=== PATIENT | female | born 1955 | race Caucasian/White ===

== ENCOUNTER 2017-02-20 11:26 | Emergency (ER) | payer MEDICAID ==
[~2017-02-20] VITALS: Ht 160 cm; Wt 77.0 kg
[~2017-02-20 11:26] MED LIST: ALLO100T PO; DEXT15DR5 EACHEYE; DILT240C52 PO; FURO40TA5 PO; GABA-531 PO; HYDR-4135 PO; INSU100C6 SQ; LEVO25TA7 PO; LEVPEN SQ; LOSA100T14 PO; METF500T4 PO; METO100T5 PO; REV20 PO; XALAO EACHEYE
[2017-02-20] MEDS ORDERED: ONDANSETRON HCL 4MG/2ML VIAL IV STA (12:55)
[2017-02-20] MEDS ORDERED: SODIUM CHLORIDE 0.9% 1,000 ML IV ONE (12:55)
[2017-02-20 14:44] LABS: BASOPHILS % 1.1 % (0.0-2.0); EOSINOPHILS % 0.4 % (0.0-5.0); HEMATOCRIT. 32.8 % (36.0-48.0); HEMOGLOBIN. 11.3 g/dL (12.0-16.0); LYMPHOCYTES % 16.2 % (20.0-50.0); MEAN CORPUSCULAR HEMOGLOBIN 27.9 pg (28.0-32.0); MEAN CORPUSCULAR HGB CONC 34.4 g/dL (31.0-37.0); MEAN CORPUSCULAR VOLUME 81.3 fL (81.0-99.0); MONOCYTES % 7.5 % (2.0-8.0); NEUTROPHILS % 74.8 % (40.0-76.0); PLATELET 161 x1000/uL (130-400); RED BLOOD CELL COUNT 4.04 mill/uL (4.2-5.4); RED CELL DISTRIBUTION WIDTH 15.9 % (11.6-14.6); WHITE BLOOD COUNT 6.1 x1000/uL (4.5-11.0)
[2017-02-20 14:49] LABS: INR 2.4; PROTHROMBIN TIME 24.5 sec
[2017-02-20 14:56] LABS: ALANINE AMINOTRANSFERASE 18 IU/L (13-61); ANION GAP 13; CALCIUM 8.9 mg/dL (8.5-10.1); CARBON DIOXIDE 30 mEq/L (21-32); CHLORIDE 103 mEq/L (98-107); INDEX HEMOLYSI 1 (1-3); INDEX ICTERIC 1 (1-4); INDEX LIPEMIC 1 (1-3); LIPASE 247 IU/L (73-393); UREA NITROGEN BLOOD 32 mg/dL (7-21); eGFR > 60 mL/min (>60)
[2017-02-20 15:30] LABS: NT PRO B-TYPE NATRIURETIC PEP 4289 pg/mL (5-125); TROPONIN I < 0.02 ng/mL (0.00-0.04)
[2017-02-20] MEDS ORDERED: FAMOTIDINE 20MG/2ML VIAL IV ONE (16:15)
[2017-02-20 16:42] LABS: CLARITY URINE CLEAR (CLEAR); COLOR URINE YELLOW (YELLOW); GLUCOSE URINE NEGATIVE (NEGATIVE); KETONES URINE NEGATIVE (NEGATIVE); LEUKOCYTE ESTERASE URINE NEGATIVE (NEGATIVE); NITRITE URINE NEGATIVE (NEGATIVE); OCCULT BLOOD URINE NEGATIVE (NEGATIVE); PH URINE 7.5 (4.5-8.0); PROTEIN URINE NEGATIVE (NEGATIVE); UROBILINOGEN URINE 0.2 E.U./dL (0.2-1.0)
[2017-02-20 17:36] VITALS: BP 134/64
== END 2017-02-20 17:38 | disposition home or self-care (01) ==
LOC: ER 11:26
DX: R10.84 Generalized abdominal pain (principal); E11.9 Type 2 diabetes mellitus without complications; I11.9 Hypertensive heart disease without heart failure; I51.9 Heart disease, unspecified; Z95.1 Presence of aortocoronary bypass graft; Z95.0 Presence of cardiac pacemaker; Z79.4 Long term (current) use of insulin; Z79.899 Other long term (current) drug therapy
CPT/HCPCS: 36415; 71010; 74176; 80053; 81003; 82962; 83690; 83880; 84484; 85025; 85610; 96361; 96374; 96375; 99285; J2405; J3490; J7030; Z7610

== ENCOUNTER 2017-10-26 12:55 | Emergency (ER) | payer MEDICAID ==
[~2017-10-26] VITALS: Ht 160 cm; Wt 70.0 kg
[~2017-10-26 12:55] MED LIST changes: +MECL-109 PO; +METO100T16 PO; -METO100T5 PO; +WARF5TAB73 PO
[2017-10-26 15:53] LABS: BASOPHILS % 2.9 % (0.0-2.0); EOSINOPHILS % 1.2 % (0.0-5.0); HEMOGLOBIN. 8.6 g/dL (12.0-16.0); LYMPHOCYTES % 8.1 % (20.0-50.0); MEAN CORPUSCULAR HEMOGLOBIN 25.1 pg (28.0-32.0); MEAN CORPUSCULAR VOLUME 79.1 fL (81.0-99.0); MEAN PLATELET VOLUME 8.3 fl (7.4-10.4); MONOCYTES % 6.3 % (2.0-8.0); NEUTROPHILS % 81.5 % (40.0-76.0); PLATELET 247 x1000/uL (130-400); RED BLOOD CELL COUNT 3.41 mill/uL (4.2-5.4); RED CELL DISTRIBUTION WIDTH 19.9 % (11.6-14.6)
[2017-10-26 15:56] LABS: CHLORIDE 101 mEq/L (98-107)
[2017-10-26 16:07] LABS: CARBON DIOXIDE 30 mEq/L (21-32)
[2017-10-26 16:15] LABS: INR 2.9; PARTIAL THROMBOPLASTIN TIME 41.7 sec (23.4-31.0); PROTHROMBIN TIME 30.3 sec (9.4-11.6)
[2017-10-26 16:37] LABS: FOLIC ACID (FOLATE) SERUM 15.2 ng/mL (>5.38)
[2017-10-26 17:18] VITALS: BP 152/69
== END 2017-10-26 17:38 | disposition home or self-care (01) ==
LOC: ER 13:42
DX: D50.9 Iron deficiency anemia, unspecified (principal); N28.9 Disorder of kidney and ureter, unspecified; I10 Essential (primary) hypertension; I25.10 Atherosclerotic heart disease of native coronary artery without angina pectoris; E11.9 Type 2 diabetes mellitus without complications; Z79.4 Long term (current) use of insulin; Z79.01 Long term (current) use of anticoagulants; Z79.899 Other long term (current) drug therapy; Z95.0 Presence of cardiac pacemaker
CPT/HCPCS: 36415; 80053; 82607; 82746; 85025; 85044; 85610; 85730; 86850; 86900; 86901; 99284; Z7610

== ENCOUNTER 2019-09-13 10:30 | Inpatient (IN) | payer MEDICARE, MEDICAID ==
[~2019-09-13] VITALS: Ht 152.4 cm; Wt 110.2 kg
[~2019-09-13 10:30] MED LIST changes: -DEXT15DR5 EACHEYE; -DILT240C52 PO; +DILT240C91 PO; +FERR325T6 PO; +FURO40SO PO; -FURO40TA5 PO; -HYDR-4135 PO; +HYDR100T26 PO; -INSU100C6 SQ; -LEVO25TA7 PO; +LEVO300T2 PO; +LEVO500T2 PO; -LEVPEN SQ; -LOSA100T14 PO; +LOSA100T32 PO; +METF-416 PO; -METF500T4 PO; +METO-411 PO; -METO100T16 PO; -REV20 PO; +VIAG100 PO; +WARF-53 PO; -WARF5TAB73 PO; -XALAO EACHEYE
[2019-09-13] MEDS ORDERED: MORPHINE SULFATE 4 MG/ML CPJ (NOT FOR IM USE) IV STA (11:30)
[2019-09-13] MEDS ORDERED: ONDANSETRON HCL 4MG/2ML INJ IV STA (11:30)
[2019-09-13] MEDS ORDERED: SODIUM CHLORIDE 0.9% 1,000 ML IV ONE (11:30)
[2019-09-13] MEDS ORDERED: LEVOFLOXACIN 500MG PREMIX 100 ML IV ONE (11:45)
[2019-09-13 12:16] LABS: BASOPHILS % 0.8 % (0.0-2.0); EOSINOPHILS % 1.2 % (0.0-5.0); HEMATOCRIT. 35.1 % (36.0-48.0); HEMOGLOBIN. 11.8 g/dL (12.0-16.0); LYMPHOCYTES % 19.2 % (20.0-50.0); MEAN CORPUSCULAR VOLUME 86.4 fL (81.0-99.0); MEAN PLATELET VOLUME 11.6 fl (7.4-10.4); MONOCYTES % 6.1 % (2.0-8.0); NEUTROPHILS % 72.7 % (40.0-76.0); PLATELET 136 x1000/uL (130-400); RED BLOOD CELL COUNT 4.06 mill/uL (4.2-5.4); RED CELL DISTRIBUTION WIDTH 17.1 % (11.6-14.6)
[2019-09-13 12:23] LABS: CHLORIDE 104 mEq/L (98-107)
[2019-09-13 12:27] LABS: PARTIAL THROMBOPLASTIN TIME 41.5 sec (23.4-31.0); PROTHROMBIN TIME 29.4 sec (9.6-11.0)
[2019-09-13] MEDS ORDERED: POTASSIUM CHLORIDE 20MEQ TABLET SR PO ONE (14:30)
[2019-09-13] MEDS ORDERED: CLONIDINE 0.1MG TABLET PO PRN (15:00)
[2019-09-13] MEDS ORDERED: ONDANSETRON HCL 4MG/2ML INJ IV PRN (15:00)
[2019-09-13] MEDS ORDERED: DOCUSATE SODIUM 100MG CAPSULE PO PRN (15:00)
[2019-09-13] MEDS ORDERED: ACETAMINOPHEN 325MG TABLET PO PRN (15:00)
[2019-09-13] MEDS ORDERED: HYDROCODONE/ACETAMINOPHEN 5/325MG TABLET PO PRN (15:00)
[2019-09-13] MEDS ORDERED: IPRATROPIUM/ALBUTEROL 0.5-3(2.5)MG/3ML NEB NEB PRN (15:00)
[2019-09-13] MEDS ORDERED: MAGNESIUM/ALUMINUM HYDROXIDE/SIMETHICONE 30ML UDC PO PRN (15:00)
[2019-09-13] MEDS ORDERED: TRAMADOL 50MG TABLET PO ONE (15:15)
[2019-09-13] MEDS ORDERED: MECLIZINE 12.5MG TABLET PO PRN (15:30)
[2019-09-13] MEDS: TRAMADOL 50MG TABLET PO NR ×2 (16:39→18:33)
[2019-09-13] MEDS ORDERED: MECLIZINE 25MG TABLET PO PRN (17:15)
[2019-09-13 17:49] VITALS: BP 114/57
[2019-09-13 18:00] VITALS: BP 114/53
[2019-09-13] MEDS: FUROSEMIDE 40MG/4ML VIAL IV SCH (18:32)
[2019-09-13] MEDS: DILTIAZEM HCL 60MG TABLET PO SCH (18:33)
[2019-09-13 20:00] VITALS: BP 112/50
[2019-09-13] MEDS: LOSARTAN POTASSIUM 50 MG TABLET PO SCH (21:00)
[2019-09-13] MEDS: HYDRALAZINE HCL 50MG TABLET PO SCH (22:00)
[2019-09-14] VITALS: BP 96/45
[2019-09-14 01:07] LABS: CREATINE KINASE 63 IU/L (26-192)
[2019-09-14 01:08] LABS: CREATINE KINASE MB FRACTION < 1.0 ng/mL (0.5-3.6)
[2019-09-14 04:00] VITALS: BP 114/51
[2019-09-14] MEDS: HYDRALAZINE HCL 50MG TABLET PO SCH ×2 (06:00→14:44)
[2019-09-14] MEDS: DILTIAZEM HCL 60MG TABLET PO SCH ×3 (06:00→12:00)
[2019-09-14 06:33] LABS: PROTHROMBIN TIME 29.5 sec (9.6-11.0)
[2019-09-14 06:43] LABS: CHLORIDE 108 mEq/L (98-107)
[2019-09-14 06:54] LABS: CREATINE KINASE 57 IU/L (26-192); LDL CHOLESTEROL 43 mg/dL (5-100)
[2019-09-14 06:56] LABS: CREATINE KINASE MB FRACTION < 1.0 ng/mL (0.5-3.6); HDL CHOLESTEROL 33 mg/dL (40-59)
[2019-09-14 06:57] LABS: BASOPHILS % 0.8 % (0.0-2.0); EOSINOPHILS % 1.8 % (0.0-5.0); HEMATOCRIT. 29.4 % (36.0-48.0); HEMOGLOBIN. 9.7 g/dL (12.0-16.0); LYMPHOCYTES % 24.3 % (20.0-50.0); MEAN CORPUSCULAR HEMOGLOBIN 28.5 pg (28.0-32.0); MEAN CORPUSCULAR VOLUME 86.2 fL (81.0-99.0); MEAN PLATELET VOLUME 10.6 fl (7.4-10.4); MONOCYTES % 7.9 % (2.0-8.0); NEUTROPHILS % 65.2 % (40.0-76.0); PLATELET 105 x1000/uL (130-400); RED BLOOD CELL COUNT 3.41 mill/uL (4.2-5.4); RED CELL DISTRIBUTION WIDTH 16.7 % (11.6-14.6)
[2019-09-14 08:00] VITALS: BP 107/53
[2019-09-14] MEDS: LOSARTAN POTASSIUM 50 MG TABLET PO SCH (08:27)
[2019-09-14] MEDS: FUROSEMIDE 40MG/4ML VIAL IV SCH (08:37)
[2019-09-14] MEDS ORDERED: POTASSIUM CHLORIDE 20MEQ TABLET SR PO SCH (09:00)
[2019-09-14 12:00] VITALS: BP 131/62
[2019-09-14 15:19] VITALS: BP 131/62
== END 2019-09-14 16:00 | disposition home or self-care (01) | DRG 913 ==
LOC: ER 10:30 → EDBEDREQ 11:41 → EDBEDREQTM 14:48 → ENRESERV 15:26 → 5WST 17:02
PROVIDERS: ADMIT Internal Medicine; ATTEND Internal Medicine
DX: S49.92XA Unspecified injury of left shoulder and upper arm, initial encounter (principal); I50.23 Acute on chronic systolic (congestive) heart failure; I13.0 Hypertensive heart and chronic kidney disease with heart failure and stage 1 through stage 4 chronic kidney disease, or unspecified chronic kidney disease; I48.20 Chronic atrial fibrillation, unspecified; I42.0 Dilated cardiomyopathy; E03.9 Hypothyroidism, unspecified; E11.22 Type 2 diabetes mellitus with diabetic chronic kidney disease; E78.5 Hyperlipidemia, unspecified; E87.6 Hypokalemia; I08.1 Rheumatic disorders of both mitral and tricuspid valves; I50.9 Heart failure, unspecified; M19.90 Unspecified osteoarthritis, unspecified site; N18.9 Chronic kidney disease, unspecified; I49.5 Sick sinus syndrome; I27.20 Pulmonary hypertension, unspecified; R79.1 Abnormal coagulation profile; W18.39XA Other fall on same level, initial encounter; Z79.01 Long term (current) use of anticoagulants; Z79.4 Long term (current) use of insulin; Z95.0 Presence of cardiac pacemaker; Z95.1 Presence of aortocoronary bypass graft; Y93.89 Activity, other specified; Y92.89 Other specified places as the place of occurrence of the external cause; Y99.8 Other external cause status; Z79.899 Other long term (current) drug therapy
CPT/HCPCS: 36415; 71045; 73030; 80048; 80061; 82550; 82553; 82962; 83735; 83880; 84443; 84484; 93005; 93880; 93970; 96361; 96374; 96375; 99291; J1940; J2270; J2405; J7030

== ENCOUNTER 2021-12-19 14:44 | Inpatient (IN) | payer MEDICARE, MEDICAID ==
[~2021-12-19] VITALS: Ht 157.5 cm; Wt 65.8 kg
[~2021-12-19 14:44] MED LIST changes: -GABA-531 PO; +GABA-532 PO; -MECL-109 PO; +MECL-159 PO
[2021-12-19 17:01] LABS: BASOPHILS % 0.6 % (0.0-2.0); EOSINOPHILS % 0.1 % (0.0-5.0); HEMOGLOBIN. 9.8 g/dL (12.0-16.0); LYMPHOCYTES % 16.3 % (20.0-50.0); MEAN CORPUSCULAR HEMOGLOBIN 28.2 pg (28.0-32.0); MEAN CORPUSCULAR VOLUME 86.9 fL (81.0-99.0); MONOCYTES % 5.3 % (2.0-8.0); NEUTROPHILS % 77.7 % (40.0-76.0); PLATELET 179 x1000/uL (130-400); RED BLOOD CELL COUNT 3.46 mill/uL (4.2-5.4); RED CELL DISTRIBUTION WIDTH 19.2 % (11.6-14.6)
[2021-12-19 17:05] LABS: CLARITY URINE CLEAR (CLEAR); COLOR URINE YELLOW (YELLOW); KETONES URINE NEGATIVE (NEGATIVE); LEUKOCYTE ESTERASE URINE 2+ (NEGATIVE); NITRITE URINE NEGATIVE (NEGATIVE); OCCULT BLOOD URINE NEGATIVE (NEGATIVE); PROTEIN URINE NEGATIVE (NEGATIVE); SPECIFIC GRAVITY URINE 1.009 (1.005-1.030); UROBILINOGEN URINE 0.2 E.U./dL (0.2-1.0)
[2021-12-19 17:07] LABS: CHLORIDE 98 mEq/L (98-107)
[2021-12-19 17:10] LABS: PROTHROMBIN TIME 29.3 sec (9.6-11.0)
[2021-12-19] MEDS ORDERED: CEFTRIAXONE 1 G PREMIX 50 ML IV ONE (18:00)
[2021-12-19 20:00] VITALS: BP 126/63
[2021-12-19] MEDS ORDERED: SODIUM CHLORIDE 0.9% 1,000 ML IV ONE (20:30)
[2021-12-19] MEDS ORDERED: ONDANSETRON HCL 4MG/2ML INJ IV PRN (23:30)
[2021-12-19] MEDS ORDERED: ACETAMINOPHEN 325MG TABLET PO PRN (23:30)
[2021-12-19] MEDS ORDERED: ENOXAPARIN 40MG/0.4ML SYR SUBCUT SCH (23:30)
[2021-12-20] MEDS: DILTIAZEM HCL 60MG TABLET PO SCH ×2 (00:49→06:00)
[2021-12-20] MEDS: SODIUM CHLORIDE 0.9% 1,000 ML IV SCH ×3 (00:50→16:10)
[2021-12-20] MEDS: CEFEPIME 500 MG in DEXTROSE 5% WATER 50 ML IV SCH (03:20)
[2021-12-20 04:00] VITALS: BP 104/49
[2021-12-20] MEDS: HYDRALAZINE HCL 50MG TABLET PO SCH ×3 (06:00→21:13)
[2021-12-20] MEDS: LEVOTHYROXINE SODIUM 25MCG TABLET PO SCH (06:18)
[2021-12-20] MEDS: SILDENAFIL CITRATE 20MG TABLET PO SCH ×3 (06:20→21:28)
[2021-12-20 06:47] LABS: BASOPHILS % 0.5 % (0.0-2.0); EOSINOPHILS % 0.1 % (0.0-5.0); HEMATOCRIT. 28.2 % (36.0-48.0); HEMOGLOBIN. 9.6 g/dL (12.0-16.0); LYMPHOCYTES % 17.1 % (20.0-50.0); MEAN CORPUSCULAR HEMOGLOBIN 29.2 pg (28.0-32.0); MEAN CORPUSCULAR VOLUME 85.7 fL (81.0-99.0); MEAN PLATELET VOLUME 10.3 fl (7.4-10.4); MONOCYTES % 7.6 % (2.0-8.0); NEUTROPHILS % 74.7 % (40.0-76.0); PLATELET 162 x1000/uL (130-400); RED CELL DISTRIBUTION WIDTH 19.2 % (11.6-14.6)
[2021-12-20 06:57] LABS: CHLORIDE 102 mEq/L (98-107)
[2021-12-20 07:17] LABS: CREATINE KINASE 77 IU/L (26-192)
[2021-12-20 07:21] LABS: CREATINE KINASE MB FRACTION 2.3 ng/mL (0.5-3.6)
[2021-12-20 08:00] VITALS: BP 127/64
[2021-12-20] MEDS ORDERED: CEFEPIME HCL 1000MG/VIAL INJ IM SCH (09:00)
[2021-12-20] MEDS ORDERED: METOPROLOL TARTRATE 50MG TABLET PO SCH (09:00)
[2021-12-20] MEDS: ALLOPURINOL 100 MG TABLET PO SCH (09:52)
[2021-12-20 12:00] VITALS: BP 125/74
[2021-12-20] MEDS ORDERED: DEXTROSE 50% WATER 50ML SYRINGE IV PRN (12:45)
[2021-12-20 16:00] VITALS: BP 100/37
[2021-12-20] MEDS: INSULIN LISPRO 100 UNITS/ML SUBCUT SCH ×2 (17:11→21:28)
[2021-12-20] MEDS: DILTIAZEM HCL 30MG TABLET PO SCH (17:12)
[2021-12-20] MEDS: BLOOD SUGAR DIAGNOSTIC STRIP TEST SCH ×2 (17:13→21:13)
[2021-12-20 18:11] LABS: CREATINE KINASE 103 IU/L (26-192)
[2021-12-20 18:12] LABS: CREATINE KINASE MB FRACTION 2.1 ng/mL (0.5-3.6)
[2021-12-20 20:00] VITALS: BP 101/66
[2021-12-20] MEDS: METOPROLOL TARTRATE 50MG TABLET PO SCH (21:00)
[2021-12-21] VITALS: BP 110/57
[2021-12-21] MEDS: DILTIAZEM HCL 30MG TABLET PO SCH ×4 (00:54→17:57)
[2021-12-21] MEDS: CEFEPIME 500 MG in DEXTROSE 5% WATER 50 ML IV SCH (00:54)
[2021-12-21] MEDS: SODIUM CHLORIDE 0.9% 1,000 ML IV SCH ×3 (00:55→17:56)
[2021-12-21 04:00] VITALS: BP 111/52
[2021-12-21] MEDS: HYDRALAZINE HCL 50MG TABLET PO SCH ×3 (06:00→21:08)
[2021-12-21] MEDS: BLOOD SUGAR DIAGNOSTIC STRIP TEST SCH ×4 (06:21→21:08)
[2021-12-21] MEDS: LEVOTHYROXINE SODIUM 25MCG TABLET PO SCH (06:28)
[2021-12-21] MEDS: SILDENAFIL CITRATE 20MG TABLET PO SCH ×3 (06:30→21:09)
[2021-12-21] MEDS: INSULIN LISPRO 100 UNITS/ML SUBCUT SCH ×4 (06:32→21:10)
[2021-12-21 07:56] LABS: BASOPHILS % 0.6 % (0.0-2.0); EOSINOPHILS % 0.5 % (0.0-5.0); HEMATOCRIT. 23.9 % (36.0-48.0); HEMOGLOBIN. 8.1 g/dL (12.0-16.0); LYMPHOCYTES % 19.2 % (20.0-50.0); MEAN CORPUSCULAR HEMOGLOBIN 29.8 pg (28.0-32.0); MEAN CORPUSCULAR VOLUME 87.8 fL (81.0-99.0); MEAN PLATELET VOLUME 10.5 fl (7.4-10.4); MONOCYTES % 8.5 % (2.0-8.0); NEUTROPHILS % 71.2 % (40.0-76.0); PLATELET 121 x1000/uL (130-400); RED BLOOD CELL COUNT 2.72 mill/uL (4.2-5.4); RED CELL DISTRIBUTION WIDTH 18.9 % (11.6-14.6)
[2021-12-21 08:00] VITALS: BP 100/44
[2021-12-21 08:01] LABS: INR 2.7; PROTHROMBIN TIME 27.2 sec (9.6-11.0)
[2021-12-21 08:10] LABS: PHOSPHORUS 3.6 mg/dL (2.5-4.9)
[2021-12-21 08:13] LABS: T4 FREE 1.03 ng/dL (0.76-1.46)
[2021-12-21] MEDS: ALLOPURINOL 100 MG TABLET PO SCH (08:14)
[2021-12-21] MEDS: METOPROLOL TARTRATE 50MG TABLET PO SCH ×2 (08:14→21:09)
[2021-12-21 11:33] VITALS: BP 127/59
[2021-12-21 15:33] VITALS: BP 119/50
[2021-12-21 20:00] VITALS: BP 131/62
[2021-12-22] VITALS: BP 126/72
[2021-12-22] MEDS: CEFEPIME 500 MG in DEXTROSE 5% WATER 50 ML IV SCH (00:18)
[2021-12-22] MEDS: DILTIAZEM HCL 30MG TABLET PO SCH ×4 (00:18→17:00)
[2021-12-22] MEDS: SODIUM CHLORIDE 0.9% 1,000 ML IV SCH ×3 (00:19→12:55)
[2021-12-22 04:00] VITALS: BP 120/69
[2021-12-22 06:02] LABS: INR 1.7; PROTHROMBIN TIME 17.9 sec (9.6-11.0)
[2021-12-22] MEDS: LEVOTHYROXINE SODIUM 25MCG TABLET PO SCH (06:06)
[2021-12-22] MEDS: HYDRALAZINE HCL 50MG TABLET PO SCH ×2 (06:07→14:55)
[2021-12-22] MEDS: BLOOD SUGAR DIAGNOSTIC STRIP TEST SCH ×4 (06:08→21:00)
[2021-12-22] MEDS: SILDENAFIL CITRATE 20MG TABLET PO SCH ×3 (06:08→22:01)
[2021-12-22] MEDS: INSULIN LISPRO 100 UNITS/ML SUBCUT SCH ×4 (06:09→22:06)
[2021-12-22 06:12] LABS: BASOPHILS % 0.6 % (0.0-2.0); EOSINOPHILS % 0.1 % (0.0-5.0); HEMATOCRIT. 24.9 % (36.0-48.0); HEMOGLOBIN. 8.1 g/dL (12.0-16.0); LYMPHOCYTES % 13.2 % (20.0-50.0); MEAN CORPUSCULAR HEMOGLOBIN 28.8 pg (28.0-32.0); MEAN PLATELET VOLUME 10.8 fl (7.4-10.4); MONOCYTES % 7.5 % (2.0-8.0); NEUTROPHILS % 78.6 % (40.0-76.0); PLATELET 134 x1000/uL (130-400); RED BLOOD CELL COUNT 2.82 mill/uL (4.2-5.4); RED CELL DISTRIBUTION WIDTH 19.3 % (11.6-14.6)
[2021-12-22 08:22] VITALS: BP 103/50
[2021-12-22] MEDS: METOPROLOL TARTRATE 50MG TABLET PO SCH ×2 (08:23→22:02)
[2021-12-22] MEDS: ALLOPURINOL 100 MG TABLET PO SCH (08:24)
[2021-12-22 13:01] VITALS: BP 130/75
[2021-12-22 16:00] VITALS: BP 141/58
[2021-12-22 20:00] VITALS: BP 147/52
[2021-12-23] VITALS: BP 115/57
[2021-12-23] MEDS: SODIUM CHLORIDE 0.9% 1,000 ML IV SCH ×3 (00:01→14:23)
[2021-12-23] MEDS: DILTIAZEM HCL 30MG TABLET PO SCH ×4 (00:10→17:05)
[2021-12-23] MEDS: CEFEPIME 500 MG in DEXTROSE 5% WATER 50 ML IV SCH (00:12)
[2021-12-23 04:00] VITALS: BP 99/47
[2021-12-23] MEDS: LEVOTHYROXINE SODIUM 25MCG TABLET PO SCH (06:33)
[2021-12-23] MEDS: SILDENAFIL CITRATE 20MG TABLET PO SCH ×2 (06:33→14:21)
[2021-12-23] MEDS: INSULIN LISPRO 100 UNITS/ML SUBCUT SCH ×3 (06:35→17:04)
[2021-12-23] MEDS: BLOOD SUGAR DIAGNOSTIC STRIP TEST SCH ×3 (06:35→17:04)
[2021-12-23 08:01] VITALS: BP 117/60
[2021-12-23] MEDS: ALLOPURINOL 100 MG TABLET PO SCH (08:19)
[2021-12-23] MEDS: METOPROLOL TARTRATE 50MG TABLET PO SCH (08:19)
[2021-12-23 10:39] LABS: INR 1.3; PROTHROMBIN TIME 13.8 sec (9.6-11.0)
[2021-12-23 11:38] VITALS: BP 130/73
[2021-12-23 15:58] VITALS: BP 107/71
[2021-12-23 17:33] VITALS: BP 130/70
[2021-12-23] MEDS ORDERED: WARFARIN SODIUM 5MG TABLET PO NR (18:00)
== END 2021-12-23 18:40 | disposition home or self-care (01) | DRG 683 ==
LOC: ER 14:44 → EDBEDREQ 15:40 → MICUSO 22:10 → EDBEDREQ 22:19 → EDBEDREQTM 22:19 → 8WST 23:38
PROVIDERS: ADMIT Internal Medicine; ATTEND Internal Medicine
DX: N17.0 Acute kidney failure with tubular necrosis (principal); N39.0 Urinary tract infection, site not specified; I13.0 Hypertensive heart and chronic kidney disease with heart failure and stage 1 through stage 4 chronic kidney disease, or unspecified chronic kidney disease; I48.20 Chronic atrial fibrillation, unspecified; I50.32 Chronic diastolic (congestive) heart failure; I42.0 Dilated cardiomyopathy; I31.3 Pericardial effusion (noninflammatory); B69.0 Cysticercosis of central nervous system; D64.9 Anemia, unspecified; E03.9 Hypothyroidism, unspecified; E11.22 Type 2 diabetes mellitus with diabetic chronic kidney disease; E11.40 Type 2 diabetes mellitus with diabetic neuropathy, unspecified; I27.20 Pulmonary hypertension, unspecified; N18.30 Chronic kidney disease, stage 3 unspecified; I48.0 Paroxysmal atrial fibrillation; I49.5 Sick sinus syndrome; K21.9 Gastro-esophageal reflux disease without esophagitis; M19.90 Unspecified osteoarthritis, unspecified site; Z20.822 Contact with and (suspected) exposure to COVID-19; J44.9 Chronic obstructive pulmonary disease, unspecified; I08.3 Combined rheumatic disorders of mitral, aortic and tricuspid valves; M06.9 Rheumatoid arthritis, unspecified; I25.10 Atherosclerotic heart disease of native coronary artery without angina pectoris; Z79.01 Long term (current) use of anticoagulants; Z79.899 Other long term (current) drug therapy; Z95.0 Presence of cardiac pacemaker; Z95.1 Presence of aortocoronary bypass graft
CPT/HCPCS: 36415; 71045; 74176; 80048; 80053; 81003; 82306; 82550; 82553; 82962; 83036; 83605; 83735; 83880; 83970; 84100; 84439; 84443; 84484; 84550; 85025; 87077; 87186; 87426; 93005; 93306; 99285; J0692; J0696; J1815; J7030; J7060

== ENCOUNTER 2022-05-13 08:59 | Emergency (ER) | payer MEDICARE, MEDICAID ==
[~2022-05-13] VITALS: Ht 144.8 cm; Wt 75.0 kg
[~2022-05-13 08:59] MED LIST changes: -FURO40SO PO; -HYDR100T26 PO; -LEVO500T2 PO; -LOSA100T32 PO; -METF-416 PO
[2022-05-13 09:06] VITALS: BP 126/72
[2022-05-13] MEDS ORDERED: ACETAMINOPHEN 325MG TABLET PO ONE (09:45)
[2022-05-13] MEDS ORDERED: ALBUTEROL 6.7GM HFA INHALER ORI NR (10:30)
[2022-05-13] MEDS ORDERED: ALBU4TAB6 MT (11:27)
[2022-05-13] MEDS ORDERED: DOXY-326 MT (11:27)
[2022-05-13] MEDS ORDERED: DOXYCYCLINE HYCLATE 100MG CAPSULE PO ONE (11:30)
== END 2022-05-13 11:56 | disposition home or self-care (01) ==
LOC: ER 08:59
DX: U07.1 COVID-19 (principal); B34.9 Viral infection, unspecified; E11.9 Type 2 diabetes mellitus without complications; I10 Essential (primary) hypertension; Z79.899 Other long term (current) drug therapy; Z13.9 Encounter for screening, unspecified
CPT/HCPCS: 71045; 87426; 99284; C9803

== ENCOUNTER 2022-06-01 14:46 | Inpatient (IN) | payer MEDICARE, MEDICAID ==
[~2022-06-01] VITALS: Ht 157.5 cm; Wt 65.8 kg
[~2022-06-01 14:46] MED LIST changes: +ALBU4TAB6 MT; +DOXY-326 MT
[2022-06-01 21:10] LABS: BASOPHILS % 1.1 % (0.0-2.0); EOSINOPHILS % 0.6 % (0.0-5.0); HEMATOCRIT. 28.8 % (36.0-48.0); LYMPHOCYTES % 19.9 % (20.0-50.0); MEAN CORPUSCULAR HEMOGLOBIN 27.4 pg (28.0-32.0); MEAN CORPUSCULAR VOLUME 87.4 fL (81.0-99.0); MEAN PLATELET VOLUME 9.1 fl (7.4-10.4); NEUTROPHILS % 70.4 % (40.0-76.0); PLATELET 230 x1000/uL (130-400); RED CELL DISTRIBUTION WIDTH 17.9 % (11.6-14.6)
[2022-06-01 21:17] LABS: CHLORIDE 102 mEq/L (98-107)
[2022-06-01 21:19] LABS: *AMPHETAMINES SCREEN URINE NEGATIVE (NEGATIVE); *BARBITURATES SCREEN URINE NEGATIVE (NEGATIVE); *BENZODIAZEPINES SCREEN URINE NEGATIVE (NEGATIVE); *COCAINE SCREEN URINE NEGATIVE (NEGATIVE); CANNABINOID URINE SCREEN NEGATIVE (NEGATIVE); METHADONE URINE SCREEN NEGATIVE (NEGATIVE); OPIATES URINE SCREEN NEGATIVE (NEGATIVE); PHENCYCLIDINE URINE SCREEN NEGATIVE (NEGATIVE)
[2022-06-01 21:28] LABS: ETHANOL BLOOD < 10 mg/dL
[2022-06-01] MEDS ORDERED: IPRATROPIUM BROMIDE (0.02%) 0.5MG/2.5ML NEB HHN NR (21:50)
[2022-06-01] MEDS ORDERED: ALBUTEROL (0.083%) 2.5MG/3ML NEB HHN NR (21:50)
[2022-06-01] MEDS ORDERED: FUROSEMIDE 40MG/4ML VIAL IV NR (22:00)
[2022-06-02 09:00] VITALS: BP 123/57
[2022-06-02 12:00] VITALS: BP 122/61
[2022-06-02] MEDS ORDERED: IPRATROPIUM/ALBUTEROL 0.5-3(2.5)MG/3ML NEB HHN PRN (12:15)
[2022-06-02] MEDS ORDERED: ACETAMINOPHEN 325MG TABLET PO PRN (12:15)
[2022-06-02] MEDS ORDERED: CEFTRIAXONE 1,000 MG in DEXTROSE 5% WATER 50 ML IV SCH (12:15)
[2022-06-02] MEDS ORDERED: ONDANSETRON HCL 4MG/2ML INJ IV PRN (12:15)
[2022-06-02] MEDS: FUROSEMIDE 40MG/4ML VIAL IVP SCH ×2 (13:12→20:24)
[2022-06-02] MEDS: CEFTRIAXONE 1,000 MG in DEXTROSE 5% WATER 50 ML IV SCH (15:31)
[2022-06-02 16:00] VITALS: BP 133/65
[2022-06-02 20:00] VITALS: BP 122/86
[2022-06-02 20:26] LABS: INR 2.7; PROTHROMBIN TIME 26.6 sec (9.6-11.0)
[2022-06-02] MEDS ORDERED: METF-873 PO (20:40)
[2022-06-02] MEDS ORDERED: EMPA25TA PO (20:41)
[2022-06-02] MEDS ORDERED: LEVO25TA2 PO (20:41)
[2022-06-02] MEDS ORDERED: LOSA100T32 PO (20:42)
[2022-06-02] MEDS ORDERED: ROSU20TA2 PO (20:43)
[2022-06-02] MEDS ORDERED: ALLO100T PO (20:44)
[2022-06-02] MEDS ORDERED: OMEP20TA23 PO (20:45)
[2022-06-02] MEDS ORDERED: DILT240C96 PO (20:46)
[2022-06-02] MEDS ORDERED: CALC0.25 PO (20:47)
[2022-06-02] MEDS ORDERED: INSU300I SQ (20:54)
[2022-06-02] MEDS ORDERED: WARFARIN SODIUM 2.5MG TABLET PO SCH (21:00)
[2022-06-03] VITALS: BP 122/55
[2022-06-03 04:00] VITALS: BP 110/59
[2022-06-03 07:06] LABS: INR 2.6; PROTHROMBIN TIME 25.7 sec (9.6-11.0)
[2022-06-03 07:31] LABS: BASOPHILS % 0.8 % (0.0-2.0); EOSINOPHILS % 0.9 % (0.0-5.0); HEMATOCRIT. 24.9 % (36.0-48.0); LYMPHOCYTES % 21.2 % (20.0-50.0); MEAN CORPUSCULAR HEMOGLOBIN 27.9 pg (28.0-32.0); MEAN CORPUSCULAR VOLUME 86.6 fL (81.0-99.0); MEAN PLATELET VOLUME 9.7 fl (7.4-10.4); MONOCYTES % 13.1 % (2.0-8.0); PLATELET 168 x1000/uL (130-400); RED BLOOD CELL COUNT 2.87 mill/uL (4.2-5.4); RED CELL DISTRIBUTION WIDTH 17.7 % (11.6-14.6)
[2022-06-03 08:00] VITALS: BP 119/57
[2022-06-03] MEDS: FUROSEMIDE 40MG/4ML VIAL IVP SCH ×2 (09:39→17:00)
[2022-06-03 12:00] VITALS: BP 138/57
[2022-06-03] MEDS: CEFTRIAXONE 1,000 MG in DEXTROSE 5% WATER 50 ML IV SCH (14:00)
[2022-06-03 16:00] VITALS: BP 119/45
[2022-06-03 16:53] VITALS: BP 119/45
[2022-06-03] MEDS ORDERED: WARFARIN SODIUM 4MG TABLET PO SCH (18:00)
== END 2022-06-03 20:20 | disposition home or self-care (01) | DRG 291 ==
LOC: ER 14:59 → 8WST 06-02 02:08 → ENRESERV 06-02 06:49
PROVIDERS: ADMIT Internal Medicine; ATTEND Internal Medicine
DX: I13.0 Hypertensive heart and chronic kidney disease with heart failure and stage 1 through stage 4 chronic kidney disease, or unspecified chronic kidney disease (principal); I50.43 Acute on chronic combined systolic (congestive) and diastolic (congestive) heart failure; J96.00 Acute respiratory failure, unspecified whether with hypoxia or hypercapnia; E87.1 Hypo-osmolality and hyponatremia; N17.9 Acute kidney failure, unspecified; I48.20 Chronic atrial fibrillation, unspecified; I27.20 Pulmonary hypertension, unspecified; E78.5 Hyperlipidemia, unspecified; Z20.822 Contact with and (suspected) exposure to COVID-19; I42.8 Other cardiomyopathies; N18.9 Chronic kidney disease, unspecified; D64.9 Anemia, unspecified; M19.90 Unspecified osteoarthritis, unspecified site; E03.9 Hypothyroidism, unspecified; E11.22 Type 2 diabetes mellitus with diabetic chronic kidney disease; I34.2 Nonrheumatic mitral (valve) stenosis; I87.8 Other specified disorders of veins; Z79.01 Long term (current) use of anticoagulants; Z79.899 Other long term (current) drug therapy; Z95.0 Presence of cardiac pacemaker
CPT/HCPCS: 36415; 71045; 80048; 80053; 80305; 80320; 82962; 83735; 83880; 84484; 85025; 87426; 93005; 93306; 99285; C9803; J0696; J1940; J7060; G0480

== ENCOUNTER 2022-06-06 09:51 | Emergency (ER) | payer MEDICAID, MEDICARE ==
[~2022-06-06] VITALS: Ht 154.9 cm; Wt 69.0 kg
[~2022-06-06 09:51] MED LIST changes: +CALC0.25 PO; +DILT240C96 PO; -DOXY-326 MT; +EMPA25TA PO; +INSU300I SQ; +LEVO25TA2 PO; -LEVO300T2 PO; +LOSA100T32 PO; +METF-873 PO; +OMEP20TA23 PO; +ROSU20TA2 PO
[2022-06-06 10:08] VITALS: BP 125/42
[2022-06-06] MEDS ORDERED: AZIT250T12 MT (11:32)
== END 2022-06-06 12:00 | disposition home or self-care (01) ==
LOC: ER 09:51
DX: Z13.9 Encounter for screening, unspecified (principal); R05.9 Cough, unspecified; I11.0 Hypertensive heart disease with heart failure; I50.9 Heart failure, unspecified; E11.9 Type 2 diabetes mellitus without complications; Z20.822 Contact with and (suspected) exposure to COVID-19; Z79.899 Other long term (current) drug therapy
CPT/HCPCS: 71045; 87426; 99284; C9803

== ENCOUNTER 2022-09-07 09:16 | Inpatient (IN) | payer MEDICARE, MEDICAID ==
[~2022-09-07] VITALS: Ht 162.6 cm; Wt 68.5 kg
[~2022-09-07 09:16] MED LIST changes: +AZIT250T12 MT
[2022-09-07 10:12] LABS: BASOPHILS % 0.9 % (0.0-2.0); EOSINOPHILS % 0.7 % (0.0-5.0); HEMATOCRIT. 26.2 % (36.0-48.0); HEMOGLOBIN. 8.4 g/dL (12.0-16.0); LYMPHOCYTES % 13.3 % (20.0-50.0); MEAN CORPUSCULAR HEMOGLOBIN 28.2 pg (28.0-32.0); MEAN CORPUSCULAR VOLUME 87.3 fL (81.0-99.0); MEAN PLATELET VOLUME 10.3 fl (7.4-10.4); MONOCYTES % 7.7 % (2.0-8.0); NEUTROPHILS % 77.4 % (40.0-76.0); PLATELET 162 x1000/uL (130-400); RED CELL DISTRIBUTION WIDTH 17.2 % (11.6-14.6)
[2022-09-07 10:16] LABS: CHLORIDE 104 mEq/L (98-107)
[2022-09-07] MEDS ORDERED: ASPIRIN 81MG TABLET PO ONE (11:00)
[2022-09-07] MEDS ORDERED: FUROSEMIDE 40MG/4ML VIAL IV ONE (11:00)
[2022-09-07] MEDS: DILTIAZEM HCL 60MG TABLET PO SCH ×3 (12:00→23:01)
[2022-09-07 13:47] LABS: PROTHROMBIN TIME 42.7 sec (9.6-11.0)
[2022-09-07 14:11] LABS: INR 4.5
[2022-09-07] MEDS ORDERED: IPRATROPIUM/ALBUTEROL 0.5-3(2.5)MG/3ML NEB HHN PRN (15:30)
[2022-09-07] MEDS ORDERED: LORAZEPAM 0.5MG TABLET PO PRN (15:30)
[2022-09-07] MEDS ORDERED: NALOXONE HCL 0.4MG/ML VIAL IV PRN (15:30)
[2022-09-07] MEDS ORDERED: HYDROCODONE/ACETAMINOPHEN 5/325MG TABLET PO PRN (15:30)
[2022-09-07] MEDS ORDERED: ACETAMINOPHEN 325MG TABLET PO PRN ×2 (15:30)
[2022-09-07] MEDS ORDERED: DOCUSATE SODIUM 100MG CAPSULE PO PRN (15:30)
[2022-09-07] MEDS ORDERED: CLONIDINE 0.1MG TABLET PO PRN (15:30)
[2022-09-07] MEDS ORDERED: ONDANSETRON HCL 4MG/2ML INJ IV PRN (15:30)
[2022-09-07 17:50] VITALS: BP 136/46
[2022-09-07 18:56] VITALS: BP 136/46
[2022-09-07 20:00] VITALS: BP 144/65
[2022-09-07] MEDS: ATORVASTATIN CALCIUM 10MG TABLET PO SCH (23:02)
[2022-09-08] VITALS: BP 128/46
[2022-09-08 04:00] VITALS: BP 137/59
[2022-09-08] MEDS: DILTIAZEM HCL 60MG TABLET PO SCH ×4 (05:14→23:35)
[2022-09-08 07:10] LABS: BASOPHILS % 0.7 % (0.0-2.0); EOSINOPHILS % 0.3 % (0.0-5.0); HEMATOCRIT. 26.1 % (36.0-48.0); HEMOGLOBIN. 8.6 g/dL (12.0-16.0); LYMPHOCYTES % 12.3 % (20.0-50.0); MEAN CORPUSCULAR HEMOGLOBIN 28.5 pg (28.0-32.0); MEAN CORPUSCULAR VOLUME 86.6 fL (81.0-99.0); MONOCYTES % 9.9 % (2.0-8.0); NEUTROPHILS % 76.8 % (40.0-76.0); PLATELET 141 x1000/uL (130-400); RED BLOOD CELL COUNT 3.01 mill/uL (4.2-5.4); RED CELL DISTRIBUTION WIDTH 17.6 % (11.6-14.6)
[2022-09-08 08:00] VITALS: BP 117/44
[2022-09-08] MEDS ORDERED: DEXTROSE 50% WATER 50ML SYRINGE IV PRN (11:00)
[2022-09-08] MEDS ORDERED: FUROSEMIDE 40MG/4ML VIAL IVP NR (11:15)
[2022-09-08 12:00] VITALS: BP 140/53
[2022-09-08] MEDS: BLOOD SUGAR DIAGNOSTIC STRIP TEST SCH ×3 (12:20→21:28)
[2022-09-08] MEDS: INSULIN LISPRO 100 UNITS/ML SUBCUT SCH ×3 (12:50→21:37)
[2022-09-08] MEDS: OMEPRAZOLE 20MG CAPSULE EXTENDED RELEASE PO SCH (13:17)
[2022-09-08] MEDS: SILDENAFIL CITRATE 20MG TABLET PO SCH ×2 (13:18→21:35)
[2022-09-08] MEDS: LEVOTHYROXINE SODIUM 25MCG TABLET PO SCH (13:19)
[2022-09-08 16:00] VITALS: BP 134/39
[2022-09-08] MEDS: ALLOPURINOL 100 MG TABLET PO SCH (17:29)
[2022-09-08] MEDS: MECLIZINE 25MG TABLET PO SCH (17:30)
[2022-09-08 20:00] VITALS: BP 131/48
[2022-09-08] MEDS: ATORVASTATIN CALCIUM 10MG TABLET PO SCH (21:36)
[2022-09-09] VITALS: BP 116/37
[2022-09-09 04:00] VITALS: BP 125/44
[2022-09-09] MEDS: DILTIAZEM HCL 60MG TABLET PO SCH ×4 (06:20→22:50)
[2022-09-09] MEDS: OMEPRAZOLE 20MG CAPSULE EXTENDED RELEASE PO SCH (06:20)
[2022-09-09] MEDS: SILDENAFIL CITRATE 20MG TABLET PO SCH ×3 (06:20→22:53)
[2022-09-09] MEDS: BLOOD SUGAR DIAGNOSTIC STRIP TEST SCH ×4 (06:20→21:00)
[2022-09-09] MEDS: LEVOTHYROXINE SODIUM 25MCG TABLET PO SCH (06:20)
[2022-09-09] MEDS: INSULIN LISPRO 100 UNITS/ML SUBCUT SCH ×4 (06:20→22:52)
[2022-09-09 06:52] LABS: INR 2.9; PROTHROMBIN TIME 28.5 sec (9.6-11.0)
[2022-09-09 06:54] LABS: BASOPHILS % 0.8 % (0.0-2.0); EOSINOPHILS % 0.9 % (0.0-5.0); HEMATOCRIT. 23.8 % (36.0-48.0); HEMOGLOBIN. 7.8 g/dL (12.0-16.0); LYMPHOCYTES % 17.8 % (20.0-50.0); MEAN CORPUSCULAR HEMOGLOBIN 28.3 pg (28.0-32.0); MEAN CORPUSCULAR VOLUME 86.3 fL (81.0-99.0); MEAN PLATELET VOLUME 9.1 fl (7.4-10.4); MONOCYTES % 10.3 % (2.0-8.0); NEUTROPHILS % 70.2 % (40.0-76.0); PLATELET 106 x1000/uL (130-400); RED BLOOD CELL COUNT 2.75 mill/uL (4.2-5.4); RED CELL DISTRIBUTION WIDTH 17.2 % (11.6-14.6)
[2022-09-09 07:32] VITALS: BP 114/56
[2022-09-09] MEDS: CALCITRIOL 0.25MCG CAPSULE PO SCH (08:48)
[2022-09-09] MEDS: GABAPENTIN 300MG CAPSULE PO SCH (08:48)
[2022-09-09] MEDS: MECLIZINE 25MG TABLET PO SCH ×2 (08:48→16:36)
[2022-09-09] MEDS: ALLOPURINOL 100 MG TABLET PO SCH ×2 (08:48→16:36)
[2022-09-09] MEDS ORDERED: POTASSIUM CHLORIDE 20MEQ TABLET SR PO NR (10:00)
[2022-09-09 11:38] VITALS: BP 104/46
[2022-09-09 15:44] VITALS: BP 128/56
[2022-09-09] MEDS ORDERED: WARFARIN SODIUM 2MG TABLET PO NR (18:00)
[2022-09-09] MEDS ORDERED: POTASSIUM CHLORIDE 20MEQ/PACKET PO NR (19:00)
[2022-09-09] MEDS: ATORVASTATIN CALCIUM 10MG TABLET PO SCH (22:49)
[2022-09-10 04:29] VITALS: BP 120/40
[2022-09-10] MEDS: DILTIAZEM HCL 60MG TABLET PO SCH ×3 (04:56→18:19)
[2022-09-10] MEDS: SILDENAFIL CITRATE 20MG TABLET PO SCH ×3 (04:57→21:04)
[2022-09-10 07:18] LABS: INR 2.1; PROTHROMBIN TIME 21.7 sec (9.6-11.0)
[2022-09-10] MEDS: BLOOD SUGAR DIAGNOSTIC STRIP TEST SCH ×4 (07:20→21:04)
[2022-09-10 07:27] LABS: BASOPHILS % 1.1 % (0.0-2.0); EOSINOPHILS % 1.5 % (0.0-5.0); HEMATOCRIT. 23.3 % (36.0-48.0); HEMOGLOBIN. 7.5 g/dL (12.0-16.0); LYMPHOCYTES % 19.8 % (20.0-50.0); MEAN CORPUSCULAR HEMOGLOBIN 28.1 pg (28.0-32.0); MEAN CORPUSCULAR VOLUME 87.3 fL (81.0-99.0); MEAN PLATELET VOLUME 9.9 fl (7.4-10.4); MONOCYTES % 10.2 % (2.0-8.0); NEUTROPHILS % 67.4 % (40.0-76.0); PLATELET 119 x1000/uL (130-400); RED BLOOD CELL COUNT 2.67 mill/uL (4.2-5.4); RED CELL DISTRIBUTION WIDTH 17.1 % (11.6-14.6)
[2022-09-10 08:00] VITALS: BP 121/51
[2022-09-10] MEDS: MECLIZINE 25MG TABLET PO SCH ×2 (08:55→18:19)
[2022-09-10] MEDS: ALLOPURINOL 100 MG TABLET PO SCH ×2 (08:55→18:19)
[2022-09-10] MEDS: CALCITRIOL 0.25MCG CAPSULE PO SCH (08:55)
[2022-09-10] MEDS: OMEPRAZOLE 20MG CAPSULE EXTENDED RELEASE PO SCH (08:55)
[2022-09-10] MEDS: GABAPENTIN 300MG CAPSULE PO SCH (08:55)
[2022-09-10] MEDS: LEVOTHYROXINE SODIUM 25MCG TABLET PO SCH (08:55)
[2022-09-10] MEDS: INSULIN LISPRO 100 UNITS/ML SUBCUT SCH ×4 (08:56→21:03)
[2022-09-10 12:00] VITALS: BP 144/42
[2022-09-10] MEDS: FUROSEMIDE 40MG/4ML VIAL IVP SCH (14:03)
[2022-09-10] MEDS: PANTOPRAZOLE SODIUM 40 MG/VIAL IV SCH (14:03)
[2022-09-10 15:08] LABS: TOTAL IRON BINDING CAPACITY 259 ug/dL (250-450)
[2022-09-10 15:34] LABS: VITAMIN B12 SERUM 567 pg/mL (211-911)
[2022-09-10 15:41] LABS: FERRITIN 42 ng/mL (10-291)
[2022-09-10 16:00] VITALS: BP 114/46
[2022-09-10] MEDS ORDERED: IRON SUCROSE COMPLEX 100 MG/5 ML ML IV ONE (16:45)
[2022-09-10] MEDS ORDERED: FURO40TA5 MT (16:48)
[2022-09-10] MEDS ORDERED: IRON SUCROSE COMPLEX 100 MG/5 ML ML IV SCH ×2 (17:00→17:15)
[2022-09-10] MEDS ORDERED: WARFARIN SODIUM 3MG TABLET PO NR (18:00)
[2022-09-10 20:00] VITALS: BP 128/54
[2022-09-10] MEDS: ATORVASTATIN CALCIUM 10MG TABLET PO SCH (21:04)
[2022-09-11] VITALS (10 sets, daily range): BP systolic 90–155; BP diastolic 37–65
[2022-09-11] MEDS: DILTIAZEM HCL 60MG TABLET PO SCH ×4 (02:20→17:21)
[2022-09-11] MEDS: LEVOTHYROXINE SODIUM 25MCG TABLET PO SCH (05:53)
[2022-09-11] MEDS: SILDENAFIL CITRATE 20MG TABLET PO SCH ×2 (05:54→13:22)
[2022-09-11] MEDS: BLOOD SUGAR DIAGNOSTIC STRIP TEST SCH ×3 (05:55→17:42)
[2022-09-11 06:50] LABS: EOSINOPHILS % 1.4 % (0.0-5.0); HEMATOCRIT. 22.7 % (36.0-48.0); HEMOGLOBIN. 7.3 g/dL (12.0-16.0); LYMPHOCYTES % 15.5 % (20.0-50.0); MEAN CORPUSCULAR HEMOGLOBIN 28.1 pg (28.0-32.0); MEAN CORPUSCULAR VOLUME 87.4 fL (81.0-99.0); MEAN PLATELET VOLUME 10.4 fl (7.4-10.4); MONOCYTES % 10.4 % (2.0-8.0); NEUTROPHILS % 71.7 % (40.0-76.0); PLATELET 128 x1000/uL (130-400); RED CELL DISTRIBUTION WIDTH 16.8 % (11.6-14.6)
[2022-09-11 07:00] LABS: PROTHROMBIN TIME 20.1 sec (9.6-11.0)
[2022-09-11] MEDS: MECLIZINE 25MG TABLET PO SCH ×2 (08:57→17:21)
[2022-09-11] MEDS: GABAPENTIN 300MG CAPSULE PO SCH (08:57)
[2022-09-11] MEDS: INSULIN LISPRO 100 UNITS/ML SUBCUT SCH ×3 (08:57→17:53)
[2022-09-11] MEDS: FUROSEMIDE 40MG/4ML VIAL IVP SCH (08:58)
[2022-09-11] MEDS: PANTOPRAZOLE SODIUM 40 MG/VIAL IV SCH (08:58)
[2022-09-11] MEDS: CALCITRIOL 0.25MCG CAPSULE PO SCH (08:58)
[2022-09-11] MEDS: ALLOPURINOL 100 MG TABLET PO SCH ×2 (08:58→17:21)
[2022-09-11] MEDS ORDERED: WARFARIN SODIUM 4MG TABLET PO NR (18:00)
== END 2022-09-11 19:35 | disposition home or self-care (01) | DRG 291 ==
LOC: ER 09:16 → 6WST 12:50 → EDBEDREQ 13:13 → CANRESERV 14:20 → ENRESERV 14:20 → 6WST 17:51
PROVIDERS: ADMIT Internal Medicine; ATTEND Internal Medicine
PROC: 30233N1 Transfusion of Nonautologous Red Blood Cells into Peripheral Vein, Percutaneous Approach (ICD-10-PCS; principal; 2022-09-11)
DX: I13.0 Hypertensive heart and chronic kidney disease with heart failure and stage 1 through stage 4 chronic kidney disease, or unspecified chronic kidney disease (principal); I50.43 Acute on chronic combined systolic (congestive) and diastolic (congestive) heart failure; J96.01 Acute respiratory failure with hypoxia; N17.9 Acute kidney failure, unspecified; I48.19 Other persistent atrial fibrillation; D61.818 Other pancytopenia; I42.8 Other cardiomyopathies; E11.22 Type 2 diabetes mellitus with diabetic chronic kidney disease; E11.40 Type 2 diabetes mellitus with diabetic neuropathy, unspecified; E03.9 Hypothyroidism, unspecified; E78.5 Hyperlipidemia, unspecified; E87.6 Hypokalemia; I08.1 Rheumatic disorders of both mitral and tricuspid valves; I27.20 Pulmonary hypertension, unspecified; Z20.822 Contact with and (suspected) exposure to COVID-19; I49.5 Sick sinus syndrome; M06.9 Rheumatoid arthritis, unspecified; N18.30 Chronic kidney disease, stage 3 unspecified; Z79.01 Long term (current) use of anticoagulants; Z79.4 Long term (current) use of insulin; Z79.899 Other long term (current) drug therapy; Z95.0 Presence of cardiac pacemaker; Z79.2 Long term (current) use of antibiotics; D64.9 Anemia, unspecified
CPT/HCPCS: 36415; 71045; 80048; 80053; 80061; 82270; 82607; 82728; 82746; 82962; 83036; 83540; 83550; 83735; 83880; 84484; 85025; 85044; 86850; 86900; 86920; 87426; 93005; 93306; 99285; C1893; C9113; J1815; J1940; J8597; P9016

== ENCOUNTER 2023-01-14 09:09 | Inpatient (IN) | payer MEDICARE, MEDICAID ==
[~2023-01-14] VITALS: Ht 162.6 cm; Wt 74.9 kg
[~2023-01-14 09:09] MED LIST changes: -AZIT250T12 MT; -DILT240C91 PO; +FURO40TA5 MT; -LOSA100T32 PO
[2023-01-14] MEDS ORDERED: FUROSEMIDE 40MG/4ML VIAL IV ONE (09:45)
[2023-01-14] MEDS ORDERED: NITROGLYCERIN OINT 1GM/INCH UDPKT TD ONE (09:45)
[2023-01-14] MEDS ORDERED: AZITHROMYCIN 500MG/250ML 250 ML IV ONE (10:00)
[2023-01-14] MEDS ORDERED: CEFTRIAXONE 1GM PREMIX 50 ML IV ONE (10:00)
[2023-01-14 11:12] LABS: BASOPHILS % 0.4 % (0.0-2.0); EOSINOPHILS % 0.2 % (0.0-5.0); HEMATOCRIT. 32.8 % (36.0-48.0); HEMOGLOBIN. 10.3 g/dL (12.0-16.0); LYMPHOCYTES % 9.4 % (20.0-50.0); MEAN CORPUSCULAR HEMOGLOBIN 28.2 pg (28.0-32.0); MEAN CORPUSCULAR VOLUME 89.7 fL (81.0-99.0); MEAN PLATELET VOLUME 10.3 fl (7.4-10.4); MONOCYTES % 4.9 % (2.0-8.0); NEUTROPHILS % 85.1 % (40.0-76.0); PLATELET 175 x1000/uL (130-400); RED BLOOD CELL COUNT 3.66 mill/uL (4.2-5.4)
[2023-01-14 11:21] LABS: CHLORIDE 101 mEq/L (98-107)
[2023-01-14 11:22] LABS: INR 1.8; PROTHROMBIN TIME 18.4 sec (9.6-11.0)
[2023-01-14] MEDS ORDERED: FUROSEMIDE 40MG/4ML VIAL IV NR (12:30)
[2023-01-14] MEDS ORDERED: CEFTRIAXONE 1GM PREMIX 50 ML IV NR (12:30)
[2023-01-14] MEDS ORDERED: IPRATROPIUM/ALBUTEROL 0.5-3(2.5)MG/3ML NEB HHN PRN (12:45)
[2023-01-14] MEDS ORDERED: ONDANSETRON HCL 4MG/2ML INJ IV PRN (12:45)
[2023-01-14] MEDS ORDERED: CLONIDINE 0.1MG TABLET PO PRN (12:45)
[2023-01-14] MEDS ORDERED: NITROGLYCERIN OINT 1GM/INCH UDPKT TD NR (16:45)
[2023-01-14 17:56] LABS: CLARITY URINE CLEAR (CLEAR); COLOR URINE YELLOW (YELLOW); KETONES URINE NEGATIVE (NEGATIVE); LEUKOCYTE ESTERASE URINE NEGATIVE (NEGATIVE); NITRITE URINE NEGATIVE (NEGATIVE); OCCULT BLOOD URINE NEGATIVE (NEGATIVE); PROTEIN URINE 1+ (NEGATIVE); SPECIFIC GRAVITY URINE 1.011 (1.005-1.030); UROBILINOGEN URINE 0.2 E.U./dL (0.2-1.0)
[2023-01-14] MEDS ORDERED: ALBUTEROL (0.083%) 2.5MG/3ML NEB HHN PRN (19:15)
[2023-01-14] MEDS ORDERED: IPRATROPIUM BROMIDE (0.02%) 0.5MG/2.5ML NEB HHN PRN (19:15)
[2023-01-14 20:00] VITALS: BP 93/46
[2023-01-14] MEDS: SILDENAFIL CITRATE 20MG TABLET PO SCH (21:42)
[2023-01-14] MEDS: ENOXAPARIN 30MG/0.3ML SYR SUBCUT SCH (21:42)
[2023-01-14] MEDS: ATORVASTATIN CALCIUM 20MG TABLET PO SCH (21:42)
[2023-01-15] VITALS (69 sets, daily range): BP systolic 35–194; BP diastolic 19–138
[2023-01-15] MEDS: SILDENAFIL CITRATE 20MG TABLET PO SCH (05:43)
[2023-01-15 06:47] LABS: BASOPHILS % 0.7 % (0.0-2.0); EOSINOPHILS % 0.1 % (0.0-5.0); HEMATOCRIT. 32.3 % (36.0-48.0); HEMOGLOBIN. 9.9 g/dL (12.0-16.0); LYMPHOCYTES % 9.2 % (20.0-50.0); MEAN CORPUSCULAR HEMOGLOBIN 27.8 pg (28.0-32.0); MEAN CORPUSCULAR VOLUME 90.9 fL (81.0-99.0); MEAN PLATELET VOLUME 10.6 fl (7.4-10.4); MONOCYTES % 6.6 % (2.0-8.0); NEUTROPHILS % 83.4 % (40.0-76.0); PLATELET 221 x1000/uL (130-400); RED BLOOD CELL COUNT 3.55 mill/uL (4.2-5.4); RED CELL DISTRIBUTION WIDTH 17.9 % (11.6-14.6)
[2023-01-15 06:50] LABS: INR 1.9; PROTHROMBIN TIME 19.7 sec (9.6-11.0)
[2023-01-15 07:21] LABS: CHLORIDE 100 mEq/L (98-107)
[2023-01-15 07:35] LABS: PHOSPHORUS 7.4 mg/dL (2.5-4.9)
[2023-01-15] MEDS: LEVOTHYROXINE SODIUM 25MCG TABLET PO SCH (07:40)
[2023-01-15] MEDS ORDERED: AMLODIPINE 2.5MG TABLET PO SCH (09:00)
[2023-01-15] MEDS: FUROSEMIDE 20MG/2ML VIAL IVP SCH (09:00)
[2023-01-15] MEDS ORDERED: ISOSORBIDE MONONITRATE 30MG TABLET SR 24HR PO SCH (09:00)
[2023-01-15 09:59] LABS: BG BASE EXCESS -2.9 mmol/L (-2.0-2.0); BG CARBOXYHEMOGLOBIN 0.3 % (0.5-1.5); BG FRACTION INSPIRED OXYGEN 32; BG METHEMOGLOBIN 0.2 % (0.0-1.5); BG OXYHEMOGLOBIN 95.5 % (94.0-97.0); BG PCO2 117.8 mmHg (35.0-45.0); BG PH 7.024 (7.350-7.450); BG PO2 95.1 mmHg (75.0-100.0); BG SAMPLE SITE LEFT BRACHIAL; BG TOTAL HEMOGLOBIN 10.7 g/dL (12.0-18.0); BG VENT MODE NASAL CANNULA
[2023-01-15] MEDS: NOREPINEPHRINE 8 MG in DEXT 5% WATER 242 ML IV PRN ×2 (10:45→14:28)
[2023-01-15] MEDS: DOBUTAMINE 250MG PREMIX 250 ML IV SCH ×3 (10:45→22:03)
[2023-01-15] MEDS ORDERED: AZITHROMYCIN 500 MG in DEXT 5% WATER 250 ML IV SCH (11:00)
[2023-01-15] MEDS ORDERED: CEFTRIAXONE 1,000 MG in DEXTROSE 5% WATER 50 ML IV SCH (12:00)
[2023-01-15] MEDS: IPRATROPIUM/ALBUTEROL 0.5-3(2.5)MG/3ML NEB HHN SCH ×2 (13:04→20:28)
[2023-01-15] MEDS: CEFTRIAXONE 1,000 MG in DEXTROSE 5% WATER 50 ML IV SCH (14:55)
[2023-01-15] MEDS: AZITHROMYCIN 500 MG in DEXT 5% WATER 250 ML IV SCH (14:55)
[2023-01-15 15:51] LABS: BG BASE EXCESS -6.4 mmol/L (-2.0-2.0); BG CARBOXYHEMOGLOBIN 0.1 % (0.5-1.5); BG DEOXYHEMOGLOBIN 3.2 % (0.0-5.0); BG FRACTION INSPIRED OXYGEN 40; BG HCO3 ACT 20.7 mmol/L (22.0-26.0); BG METHEMOGLOBIN 0.2 % (0.0-1.5); BG OXYGEN SATURATION 96.8 % (92.0-98.5); BG OXYHEMOGLOBIN 96.5 % (94.0-97.0); BG PCO2 48.3 mmHg (35.0-45.0); BG PO2 92.9 mmHg (75.0-100.0); BG SAMPLE SITE RIGHT BRACHIAL; BG TOTAL HEMOGLOBIN 10.6 g/dL (12.0-18.0); BG VENT MODE MASK - BIPAP
[2023-01-15] MEDS ORDERED: NOREPINEPHRINE 32 MG in DEXT 5% WATER 218 ML IV PRN (17:30)
[2023-01-15] MEDS: ENOXAPARIN 30MG/0.3ML SYR SUBCUT SCH (18:29)
[2023-01-15 20:20] LABS: BG BASE EXCESS -1.9 mmol/L (-2.0-2.0); BG CARBOXYHEMOGLOBIN 0.2 % (0.5-1.5); BG DEOXYHEMOGLOBIN 2.1 % (0.0-5.0); BG FRACTION INSPIRED OXYGEN 40; BG HCO3 ACT 24.7 mmol/L (22.0-26.0); BG METHEMOGLOBIN 0.2 % (0.0-1.5); BG OXYGEN SATURATION 97.9 % (92.0-98.5); BG OXYHEMOGLOBIN 97.5 % (94.0-97.0); BG PCO2 51.4 mmHg (35.0-45.0); BG PH 7.299 (7.350-7.450); BG PO2 115.7 mmHg (75.0-100.0); BG SAMPLE SITE RIGHT BRACHIAL; BG VENT MODE MASK - BIPAP
[2023-01-15] MEDS: ATORVASTATIN CALCIUM 20MG TABLET PO SCH (21:00)
[2023-01-15] MEDS: PHENYLEPHRINE 100 MG in DEXT 5% WATER 240 ML IV PRN (21:28)
[2023-01-15] MEDS: DIPHENHYDRAMINE 50MG/ML VIAL IV PRN (21:30)
[2023-01-16] VITALS (101 sets, daily range): BP systolic 47–241; BP diastolic 25–187
[2023-01-16] MEDS ORDERED: ACETAMINOPHEN 650MG SUPP PR PRN (02:00)
[2023-01-16] MEDS: DOBUTAMINE 250MG PREMIX 250 ML IV SCH ×2 (02:07→05:48)
[2023-01-16] MEDS: IPRATROPIUM/ALBUTEROL 0.5-3(2.5)MG/3ML NEB HHN SCH ×3 (02:21→13:51)
[2023-01-16] MEDS: DIPHENHYDRAMINE 50MG/ML VIAL IV PRN ×2 (02:42→22:23)
[2023-01-16] MEDS: PHENYLEPHRINE 100 MG in DEXT 5% WATER 240 ML IV PRN ×3 (03:18→20:20)
[2023-01-16 05:37] LABS: HEMATOCRIT. 26.7 % (36.0-48.0); HEMOGLOBIN. 8.3 g/dL (12.0-16.0); MEAN CORPUSCULAR HEMOGLOBIN 27.9 pg (28.0-32.0); MEAN CORPUSCULAR VOLUME 89.5 fL (81.0-99.0); MEAN PLATELET VOLUME 9.5 fl (7.4-10.4); PLATELET 111 x1000/uL (130-400); RED BLOOD CELL COUNT 2.99 mill/uL (4.2-5.4); RED CELL DISTRIBUTION WIDTH 17.1 % (11.6-14.6)
[2023-01-16 06:06] LABS: INR 2.6; PROTHROMBIN TIME 26.1 sec (9.6-11.0)
[2023-01-16 08:16] LABS: PLATELET ESTIMATE SLIGHTLY DECREASED
[2023-01-16] MEDS ORDERED: DIGOXIN 500MCG/2ML AMP IV NR (09:00)
[2023-01-16] MEDS ORDERED: ALBUMIN HUMAN 25GM/100ML (25%) IV NR (09:00)
[2023-01-16] MEDS: FUROSEMIDE 20MG/2ML VIAL IVP SCH (09:00)
[2023-01-16] MEDS: LEVOTHYROXINE SODIUM 25MCG TABLET PO SCH (09:16)
[2023-01-16] MEDS ORDERED: ALBUMIN HUMAN 12.5G/250ML (5%) IV NR (09:30)
[2023-01-16 09:52] LABS: BG BASE EXCESS 0.2 mmol/L (-2.0-2.0); BG CARBOXYHEMOGLOBIN 0.1 % (0.5-1.5); BG DEOXYHEMOGLOBIN 2.2 % (0.0-5.0); BG FRACTION INSPIRED OXYGEN 40; BG HCO3 ACT 25.9 mmol/L (22.0-26.0); BG METHEMOGLOBIN 0.2 % (0.0-1.5); BG OXYGEN SATURATION 97.8 % (92.0-98.5); BG OXYHEMOGLOBIN 97.5 % (94.0-97.0); BG PCO2 47.2 mmHg (35.0-45.0); BG PH 7.357 (7.350-7.450); BG PO2 108.3 mmHg (75.0-100.0); BG SAMPLE SITE RIGHT RADIAL; BG VENT MODE MASK - BIPAP
[2023-01-16] MEDS ORDERED: LIDOCAINE HCL/PF 1% 10 MG/ML 5ML VIAL ONE (12:35)
[2023-01-16] MEDS: CEFTRIAXONE 1,000 MG in DEXTROSE 5% WATER 50 ML IV SCH (14:09)
[2023-01-16] MEDS: AZITHROMYCIN 500 MG in DEXT 5% WATER 250 ML IV SCH (15:33)
[2023-01-16] MEDS: ENOXAPARIN 30MG/0.3ML SYR SUBCUT SCH (17:12)
[2023-01-16 20:01] LABS: HEPATITIS B SURFACE ANTIGEN NEGATIVE
[2023-01-16] MEDS: ATORVASTATIN CALCIUM 20MG TABLET PO SCH (21:01)
[2023-01-17] VITALS (60 sets, daily range): BP systolic 71–166; BP diastolic 14–120
[2023-01-17] MEDS: IPRATROPIUM/ALBUTEROL 0.5-3(2.5)MG/3ML NEB HHN SCH ×4 (00:29→20:38)
[2023-01-17 06:37] LABS: BASOPHILS % 0.3 % (0.0-2.0); EOSINOPHILS % 0.5 % (0.0-5.0); HEMATOCRIT. 26.7 % (36.0-48.0); HEMOGLOBIN. 8.5 g/dL (12.0-16.0); LYMPHOCYTES % 9.8 % (20.0-50.0); MEAN CORPUSCULAR HEMOGLOBIN 28.3 pg (28.0-32.0); MEAN CORPUSCULAR VOLUME 88.3 fL (81.0-99.0); MEAN PLATELET VOLUME 9.1 fl (7.4-10.4); MONOCYTES % 8.1 % (2.0-8.0); NEUTROPHILS % 81.3 % (40.0-76.0); PLATELET 93 x1000/uL (130-400); RED BLOOD CELL COUNT 3.02 mill/uL (4.2-5.4); RED CELL DISTRIBUTION WIDTH 16.8 % (11.6-14.6)
[2023-01-17 06:45] LABS: INR 2.4; PROTHROMBIN TIME 24.5 sec (9.6-11.0)
[2023-01-17] MEDS: LEVOTHYROXINE SODIUM 25MCG TABLET PO SCH (08:41)
[2023-01-17] MEDS: PANTOT AC/MIN OIL/PET HY-PHL OINT (AQUAPHOR) TOP SCH (08:42)
[2023-01-17] MEDS: FUROSEMIDE 20MG/2ML VIAL IVP SCH (08:43)
[2023-01-17] MEDS: CEFTRIAXONE 1,000 MG in DEXTROSE 5% WATER 50 ML IV SCH (12:31)
[2023-01-17] MEDS: AZITHROMYCIN 500 MG in DEXT 5% WATER 250 ML IV SCH (13:30)
[2023-01-17] MEDS: MIDODRINE HCL 5MG TABLET PO SCH ×2 (13:49→22:16)
[2023-01-17] MEDS ORDERED: DEXTROSE 50% WATER 50ML SYRINGE IV PRN (19:15)
[2023-01-17] MEDS: ATORVASTATIN CALCIUM 20MG TABLET PO SCH (22:16)
[2023-01-17] MEDS: BLOOD SUGAR DIAGNOSTIC STRIP TEST SCH (23:00)
[2023-01-17] MEDS: INSULIN LISPRO 100 UNITS/ML SUBCUT SCH (23:00)
[2023-01-18] VITALS (40 sets, daily range): BP systolic 97–182; BP diastolic 39–116
[2023-01-18] MEDS: DIPHENHYDRAMINE 50MG/ML VIAL IV PRN ×2 (01:24→22:50)
[2023-01-18] MEDS: IPRATROPIUM/ALBUTEROL 0.5-3(2.5)MG/3ML NEB HHN SCH ×3 (01:24→14:27)
[2023-01-18] MEDS: ACETAMINOPHEN 325MG TABLET PO PRN ×2 (01:25→22:50)
[2023-01-18] MEDS: MIDODRINE HCL 5MG TABLET PO SCH ×3 (06:05→21:04)
[2023-01-18 06:52] LABS: HEMATOCRIT. 27.6 % (36.0-48.0); HEMOGLOBIN. 8.9 g/dL (12.0-16.0); MEAN CORPUSCULAR HEMOGLOBIN 28.2 pg (28.0-32.0); MEAN CORPUSCULAR VOLUME 87.5 fL (81.0-99.0); MEAN PLATELET VOLUME 9.8 fl (7.4-10.4); PLATELET 104 x1000/uL (130-400); RED BLOOD CELL COUNT 3.15 mill/uL (4.2-5.4); RED CELL DISTRIBUTION WIDTH 16.7 % (11.6-14.6)
[2023-01-18 06:59] LABS: INR 2.2; PROTHROMBIN TIME 22.8 sec (9.6-11.0)
[2023-01-18] MEDS: BLOOD SUGAR DIAGNOSTIC STRIP TEST SCH ×4 (07:50→20:22)
[2023-01-18] MEDS: INSULIN LISPRO 100 UNITS/ML SUBCUT SCH ×4 (08:20→20:22)
[2023-01-18] MEDS: LEVOTHYROXINE SODIUM 25MCG TABLET PO SCH (09:03)
[2023-01-18] MEDS: FUROSEMIDE 20MG/2ML VIAL IVP SCH (09:04)
[2023-01-18] MEDS: PANTOT AC/MIN OIL/PET HY-PHL OINT (AQUAPHOR) TOP SCH (09:04)
[2023-01-18 09:45] LABS: PLATELET ESTIMATE DECREASED
[2023-01-18] MEDS: CEFTRIAXONE 1,000 MG in DEXTROSE 5% WATER 50 ML IV SCH (11:47)
[2023-01-18] MEDS: AZITHROMYCIN 500 MG in DEXT 5% WATER 250 ML IV SCH (12:50)
[2023-01-18] MEDS ORDERED: WARFARIN SODIUM 3MG TABLET PO SCH (18:00)
[2023-01-18] MEDS: IPRATROPIUM BROMIDE (0.02%) 0.5MG/2.5ML NEB HHN SCH (20:59)
[2023-01-18] MEDS: ALBUTEROL (0.083%) 2.5MG/3ML NEB HHN SCH (20:59)
[2023-01-18] MEDS: ATORVASTATIN CALCIUM 20MG TABLET PO SCH (21:14)
[2023-01-19] VITALS: BP 158/80
[2023-01-19] MEDS: IPRATROPIUM BROMIDE (0.02%) 0.5MG/2.5ML NEB HHN SCH ×4 (00:56→21:41)
[2023-01-19] MEDS: ALBUTEROL (0.083%) 2.5MG/3ML NEB HHN SCH ×4 (00:56→21:42)
[2023-01-19 04:00] VITALS: BP 167/60
[2023-01-19] MEDS: MIDODRINE HCL 5MG TABLET PO SCH ×2 (05:35→14:00)
[2023-01-19] MEDS: BLOOD SUGAR DIAGNOSTIC STRIP TEST SCH ×4 (05:56→21:00)
[2023-01-19] MEDS: LEVOTHYROXINE SODIUM 25MCG TABLET PO SCH (05:59)
[2023-01-19 06:29] LABS: INR 1.5; PROTHROMBIN TIME 16.2 sec (9.6-11.0)
[2023-01-19 06:45] LABS: BASOPHILS % 0.5 % (0.0-2.0); EOSINOPHILS % 1.6 % (0.0-5.0); HEMATOCRIT. 28.3 % (36.0-48.0); HEMOGLOBIN. 9.4 g/dL (12.0-16.0); LYMPHOCYTES % 11.1 % (20.0-50.0); MEAN CORPUSCULAR HEMOGLOBIN 29.2 pg (28.0-32.0); MEAN CORPUSCULAR VOLUME 88.1 fL (81.0-99.0); MEAN PLATELET VOLUME 9.7 fl (7.4-10.4); MONOCYTES % 9.5 % (2.0-8.0); NEUTROPHILS % 77.3 % (40.0-76.0); PLATELET 110 x1000/uL (130-400); RED BLOOD CELL COUNT 3.21 mill/uL (4.2-5.4); RED CELL DISTRIBUTION WIDTH 16.5 % (11.6-14.6)
[2023-01-19] MEDS: INSULIN LISPRO 100 UNITS/ML SUBCUT SCH ×4 (07:10→21:12)
[2023-01-19 08:00] VITALS: BP 148/68
[2023-01-19] MEDS: FUROSEMIDE 20MG/2ML VIAL IVP SCH (09:09)
[2023-01-19] MEDS: PANTOT AC/MIN OIL/PET HY-PHL OINT (AQUAPHOR) TOP SCH (09:10)
[2023-01-19 12:00] VITALS: BP 138/50
[2023-01-19] MEDS: CEFTRIAXONE 1,000 MG in DEXTROSE 5% WATER 50 ML IV SCH (12:01)
[2023-01-19 16:00] VITALS: BP 154/66
[2023-01-19] MEDS ORDERED: AMLODIPINE 5MG TABLET PO NR (16:40)
[2023-01-19] MEDS ORDERED: WARFARIN SODIUM 5MG TABLET PO NR (18:00)
[2023-01-19 20:00] VITALS: BP 153/65
[2023-01-19] MEDS: SILDENAFIL CITRATE 20MG TABLET PO SCH (21:11)
[2023-01-19] MEDS: ATORVASTATIN CALCIUM 20MG TABLET PO SCH (21:11)
[2023-01-20] VITALS (10 sets, daily range): BP systolic 105–146; BP diastolic 36–62
[2023-01-20] MEDS: IPRATROPIUM BROMIDE (0.02%) 0.5MG/2.5ML NEB HHN SCH ×3 (02:26→14:59)
[2023-01-20] MEDS: ALBUTEROL (0.083%) 2.5MG/3ML NEB HHN SCH ×3 (02:27→14:58)
[2023-01-20] MEDS: LEVOTHYROXINE SODIUM 25MCG TABLET PO SCH (05:47)
[2023-01-20] MEDS: SILDENAFIL CITRATE 20MG TABLET PO SCH ×3 (05:48→21:58)
[2023-01-20] MEDS: BLOOD SUGAR DIAGNOSTIC STRIP TEST SCH ×4 (05:48→21:47)
[2023-01-20 06:28] LABS: INR 1.6; PROTHROMBIN TIME 16.3 sec (9.6-11.0)
[2023-01-20 06:46] LABS: BASOPHILS % 0.5 % (0.0-2.0); EOSINOPHILS % 1.8 % (0.0-5.0); HEMATOCRIT. 27.2 % (36.0-48.0); HEMOGLOBIN. 8.8 g/dL (12.0-16.0); LYMPHOCYTES % 11.2 % (20.0-50.0); MEAN CORPUSCULAR HEMOGLOBIN 28.6 pg (28.0-32.0); MEAN CORPUSCULAR VOLUME 88.2 fL (81.0-99.0); MEAN PLATELET VOLUME 10.6 fl (7.4-10.4); MONOCYTES % 9.2 % (2.0-8.0); NEUTROPHILS % 77.3 % (40.0-76.0); PLATELET 131 x1000/uL (130-400); RED BLOOD CELL COUNT 3.09 mill/uL (4.2-5.4); RED CELL DISTRIBUTION WIDTH 16.5 % (11.6-14.6)
[2023-01-20] MEDS: INSULIN LISPRO 100 UNITS/ML SUBCUT SCH ×4 (07:10→22:31)
[2023-01-20] MEDS ORDERED: AMLODIPINE 5MG TABLET PO SCH (09:00)
[2023-01-20] MEDS ORDERED: ENOXAPARIN 80MG/0.8ML SYR SUBCUT SCH (10:00)
[2023-01-20] MEDS: PANTOT AC/MIN OIL/PET HY-PHL OINT (AQUAPHOR) TOP SCH (11:29)
[2023-01-20] MEDS: AMLODIPINE 5MG TABLET PO SCH (11:31)
[2023-01-20] MEDS: FUROSEMIDE 20MG/2ML VIAL IVP SCH (11:34)
[2023-01-20] MEDS ORDERED: WARFARIN SODIUM 5MG TABLET PO SCH (18:00)
[2023-01-20] MEDS: ATORVASTATIN CALCIUM 20MG TABLET PO SCH (21:58)
[2023-01-21] VITALS (10 sets, daily range): BP systolic 94–156; BP diastolic 38–73
[2023-01-21] MEDS ORDERED: DEXT 5%/0.45% NACL 1000ML 1,000 ML IV ONE
[2023-01-21] MEDS: ALBUTEROL (0.083%) 2.5MG/3ML NEB HHN SCH ×4 (02:05→21:31)
[2023-01-21] MEDS: IPRATROPIUM BROMIDE (0.02%) 0.5MG/2.5ML NEB HHN SCH ×4 (02:06→21:31)
[2023-01-21] MEDS: LEVOTHYROXINE SODIUM 25MCG TABLET PO SCH (06:30)
[2023-01-21] MEDS: BLOOD SUGAR DIAGNOSTIC STRIP TEST SCH ×4 (06:31→21:00)
[2023-01-21] MEDS: SILDENAFIL CITRATE 20MG TABLET PO SCH ×3 (06:41→22:45)
[2023-01-21] MEDS: INSULIN LISPRO 100 UNITS/ML SUBCUT SCH ×4 (07:50→21:00)
[2023-01-21 08:41] LABS: INR 1.5
[2023-01-21] MEDS: PANTOT AC/MIN OIL/PET HY-PHL OINT (AQUAPHOR) TOP SCH (09:00)
[2023-01-21] MEDS: FUROSEMIDE 20MG/2ML VIAL IVP SCH (09:19)
[2023-01-21] MEDS: AMLODIPINE 5MG TABLET PO SCH (09:22)
[2023-01-21] MEDS ORDERED: CEFAZOLIN 1000MG PREMIX 50 ML IV NR (11:30)
[2023-01-21] MEDS ORDERED: LIDOCAINE HCL 1% 10 MG/ML 10ML VIAL ONE (12:27)
[2023-01-21] MEDS: ENOXAPARIN 30MG/0.3ML SYR SUBCUT SCH (15:30)
[2023-01-21] MEDS: ATORVASTATIN CALCIUM 20MG TABLET PO SCH (22:45)
[2023-01-21] MEDS: WARFARIN SODIUM 4MG TABLET PO SCH (22:45)
[2023-01-22] VITALS (10 sets, daily range): BP systolic 125–168; BP diastolic 38–74
[2023-01-22] MEDS: ZOLPIDEM TARTRATE 5MG TABLET PO PRN (00:22)
[2023-01-22] MEDS: ALBUTEROL (0.083%) 2.5MG/3ML NEB HHN SCH ×4 (02:45→21:38)
[2023-01-22] MEDS: IPRATROPIUM BROMIDE (0.02%) 0.5MG/2.5ML NEB HHN SCH ×4 (02:45→21:38)
[2023-01-22 05:52] LABS: BASOPHILS % 0.7 % (0.0-2.0); EOSINOPHILS % 1.2 % (0.0-5.0); HEMATOCRIT. 28.7 % (36.0-48.0); HEMOGLOBIN. 9.1 g/dL (12.0-16.0); LYMPHOCYTES % 7.2 % (20.0-50.0); MEAN CORPUSCULAR HEMOGLOBIN 27.9 pg (28.0-32.0); MEAN CORPUSCULAR VOLUME 88.3 fL (81.0-99.0); MONOCYTES % 8.5 % (2.0-8.0); NEUTROPHILS % 82.4 % (40.0-76.0); PLATELET 149 x1000/uL (130-400); RED BLOOD CELL COUNT 3.25 mill/uL (4.2-5.4); RED CELL DISTRIBUTION WIDTH 16.9 % (11.6-14.6)
[2023-01-22 05:55] LABS: INR 1.5; PROTHROMBIN TIME 15.5 sec (9.6-11.0)
[2023-01-22] MEDS: LEVOTHYROXINE SODIUM 25MCG TABLET PO SCH (06:49)
[2023-01-22] MEDS: SILDENAFIL CITRATE 20MG TABLET PO SCH ×3 (06:49→21:32)
[2023-01-22] MEDS: INSULIN LISPRO 100 UNITS/ML SUBCUT SCH ×4 (07:50→21:00)
[2023-01-22] MEDS: BLOOD SUGAR DIAGNOSTIC STRIP TEST SCH ×4 (08:00→21:18)
[2023-01-22 08:56] LABS: BG BASE EXCESS 1.7 mmol/L (-2.0-2.0); BG CARBOXYHEMOGLOBIN 0.7 % (0.5-1.5); BG DEOXYHEMOGLOBIN 19.6 % (0.0-5.0); BG FRACTION INSPIRED OXYGEN 21; BG HCO3 ACT 27.5 mmol/L (22.0-26.0); BG METHEMOGLOBIN 0.1 % (0.0-1.5); BG OXYGEN SATURATION 80.2 % (92.0-98.5); BG OXYHEMOGLOBIN 79.6 % (94.0-97.0); BG PCO2 49.1 mmHg (35.0-45.0); BG PH 7.366 (7.350-7.450); BG PO2 42.2 mmHg (75.0-100.0); BG SAMPLE SITE RIGHT BRACHIAL; BG TOTAL HEMOGLOBIN 10.3 g/dL (12.0-18.0); BG VENT MODE ROOM AIR
[2023-01-22] MEDS: AMLODIPINE 5MG TABLET PO SCH (09:00)
[2023-01-22] MEDS: PANTOT AC/MIN OIL/PET HY-PHL OINT (AQUAPHOR) TOP SCH (09:00)
[2023-01-22] MEDS: ENOXAPARIN 30MG/0.3ML SYR SUBCUT SCH (14:26)
[2023-01-22] MEDS: FUROSEMIDE 20MG/2ML VIAL IVP SCH (14:26)
[2023-01-22] MEDS ORDERED: ATOR20TA PO (16:08)
[2023-01-22] MEDS ORDERED: AMLO5TAB88 PO (16:08)
[2023-01-22] MEDS: WARFARIN SODIUM 4MG TABLET PO SCH (18:26)
[2023-01-22] MEDS: ATORVASTATIN CALCIUM 20MG TABLET PO SCH (21:32)
[2023-01-23] VITALS (15 sets, daily range): BP systolic 14–174; BP diastolic 27–79
[2023-01-23] MEDS: ALBUTEROL (0.083%) 2.5MG/3ML NEB HHN SCH ×4 (02:13→20:37)
[2023-01-23] MEDS: IPRATROPIUM BROMIDE (0.02%) 0.5MG/2.5ML NEB HHN SCH ×4 (02:13→20:37)
[2023-01-23] MEDS: SILDENAFIL CITRATE 20MG TABLET PO SCH ×3 (06:00→22:00)
[2023-01-23 06:49] LABS: INR 1.7; PROTHROMBIN TIME 17.2 sec (9.6-11.0)
[2023-01-23] MEDS: BLOOD SUGAR DIAGNOSTIC STRIP TEST SCH ×4 (07:23→21:14)
[2023-01-23] MEDS: INSULIN LISPRO 100 UNITS/ML SUBCUT SCH ×4 (07:24→21:00)
[2023-01-23] MEDS: LEVOTHYROXINE SODIUM 25MCG TABLET PO SCH (07:42)
[2023-01-23] MEDS: PANTOT AC/MIN OIL/PET HY-PHL OINT (AQUAPHOR) TOP SCH (09:00)
[2023-01-23] MEDS: AMLODIPINE 5MG TABLET PO SCH (09:03)
[2023-01-23] MEDS: FUROSEMIDE 20MG/2ML VIAL IVP SCH (09:03)
[2023-01-23 09:26] LABS: BG BASE EXCESS -0.2 mmol/L (-2.0-2.0); BG FRACTION INSPIRED OXYGEN 32; BG HCO3 ACT 26.7 mmol/L (22.0-26.0); BG PCO2 55.8 mmHg (35.0-45.0); BG PH 7.298 (7.350-7.450); BG PO2 129.3 mmHg (75.0-100.0); BG SAMPLE SITE RIGHT BRACHIAL; BG TOTAL HEMOGLOBIN 9.4 g/dL (12.0-18.0); BG VENT MODE NASAL CANNULA
[2023-01-23] MEDS: ENOXAPARIN 30MG/0.3ML SYR SUBCUT SCH (16:01)
[2023-01-23] MEDS ORDERED: IPRATROPIUM BROMIDE (0.02%) 0.5MG/2.5ML NEB ONE (20:28)
[2023-01-23] MEDS ORDERED: ALBUTEROL (0.083%) 2.5MG/3ML NEB ONE (20:28)
[2023-01-23] MEDS: WARFARIN SODIUM 4MG TABLET PO SCH (21:19)
[2023-01-23] MEDS: ATORVASTATIN CALCIUM 20MG TABLET PO SCH (21:19)
[2023-01-24] VITALS: BP 123/58
[2023-01-24] MEDS: ACETAMINOPHEN 325MG TABLET PO PRN ×2 (00:18→05:22)
[2023-01-24 04:10] VITALS: BP 151/46
[2023-01-24] MEDS: SILDENAFIL CITRATE 20MG TABLET PO SCH ×3 (05:22→21:10)
[2023-01-24 06:13] LABS: INR 1.8; PROTHROMBIN TIME 18.2 sec (9.6-11.0)
[2023-01-24] MEDS: BLOOD SUGAR DIAGNOSTIC STRIP TEST SCH ×4 (06:30→21:09)
[2023-01-24 08:00] VITALS: BP 140/52
[2023-01-24] MEDS: INSULIN LISPRO 100 UNITS/ML SUBCUT SCH ×4 (08:10→21:00)
[2023-01-24] MEDS: LEVOTHYROXINE SODIUM 25MCG TABLET PO SCH (08:11)
[2023-01-24] MEDS: FUROSEMIDE 20MG/2ML VIAL IVP SCH (09:58)
[2023-01-24] MEDS: AMLODIPINE 5MG TABLET PO SCH (10:05)
[2023-01-24] MEDS: PANTOT AC/MIN OIL/PET HY-PHL OINT (AQUAPHOR) TOP SCH (10:05)
[2023-01-24 12:00] VITALS: BP 142/49
[2023-01-24] MEDS: ENOXAPARIN 30MG/0.3ML SYR SUBCUT SCH (14:45)
[2023-01-24 16:50] VITALS: BP 125/74
[2023-01-24] MEDS: WARFARIN SODIUM 4MG TABLET PO SCH (19:30)
[2023-01-24 20:49] VITALS: BP 112/64
[2023-01-24] MEDS: ATORVASTATIN CALCIUM 20MG TABLET PO SCH (21:10)
[2023-01-25] VITALS (14 sets, daily range): BP systolic 95–154; BP diastolic 47–78
[2023-01-25] MEDS: LEVOTHYROXINE SODIUM 25MCG TABLET PO SCH (05:56)
[2023-01-25] MEDS: BLOOD SUGAR DIAGNOSTIC STRIP TEST SCH ×4 (05:57→20:00)
[2023-01-25] MEDS: SILDENAFIL CITRATE 20MG TABLET PO SCH ×3 (05:57→21:05)
[2023-01-25] MEDS: INSULIN LISPRO 100 UNITS/ML SUBCUT SCH ×4 (05:57→21:14)
[2023-01-25 07:00] LABS: BASOPHILS % 1.1 % (0.0-2.0); EOSINOPHILS % 1.7 % (0.0-5.0); HEMATOCRIT. 29.8 % (36.0-48.0); HEMOGLOBIN. 9.5 g/dL (12.0-16.0); LYMPHOCYTES % 12.4 % (20.0-50.0); MEAN CORPUSCULAR HEMOGLOBIN 27.7 pg (28.0-32.0); MEAN CORPUSCULAR VOLUME 87.2 fL (81.0-99.0); MONOCYTES % 9.3 % (2.0-8.0); NEUTROPHILS % 75.5 % (40.0-76.0); PLATELET 158 x1000/uL (130-400); RED BLOOD CELL COUNT 3.42 mill/uL (4.2-5.4); RED CELL DISTRIBUTION WIDTH 16.7 % (11.6-14.6)
[2023-01-25 07:08] LABS: INR 1.9; PROTHROMBIN TIME 19.7 sec (9.6-11.0)
[2023-01-25] MEDS: FUROSEMIDE 20MG/2ML VIAL IVP SCH (09:32)
[2023-01-25] MEDS: AMLODIPINE 5MG TABLET PO SCH (09:33)
[2023-01-25] MEDS: PANTOT AC/MIN OIL/PET HY-PHL OINT (AQUAPHOR) TOP SCH (09:34)
[2023-01-25] MEDS: ENOXAPARIN 30MG/0.3ML SYR SUBCUT SCH (15:28)
[2023-01-25 16:51] LABS: VITAMIN B12 SERUM 783 pg/mL (211-911)
[2023-01-25] MEDS: WARFARIN SODIUM 4MG TABLET PO SCH (18:37)
[2023-01-25] MEDS: ATORVASTATIN CALCIUM 20MG TABLET PO SCH (21:05)
[2023-01-26 00:34] VITALS: BP 119/44
[2023-01-26] MEDS: ZOLPIDEM TARTRATE 5MG TABLET PO PRN ×2 (01:04→21:59)
[2023-01-26] MEDS: ACETAMINOPHEN 325MG TABLET PO PRN (01:04)
[2023-01-26 04:00] VITALS: BP 132/51
[2023-01-26 06:05] LABS: BASOPHILS % 0.8 % (0.0-2.0); EOSINOPHILS % 1.5 % (0.0-5.0); LYMPHOCYTES % 14.2 % (20.0-50.0); MEAN CORPUSCULAR HEMOGLOBIN 27.2 pg (28.0-32.0); MEAN CORPUSCULAR VOLUME 86.7 fL (81.0-99.0); MEAN PLATELET VOLUME 9.9 fl (7.4-10.4); MONOCYTES % 10.3 % (2.0-8.0); NEUTROPHILS % 73.2 % (40.0-76.0); PLATELET 169 x1000/uL (130-400); RED BLOOD CELL COUNT 3.69 mill/uL (4.2-5.4); RED CELL DISTRIBUTION WIDTH 16.6 % (11.6-14.6)
[2023-01-26] MEDS: SILDENAFIL CITRATE 20MG TABLET PO SCH ×3 (06:10→22:00)
[2023-01-26 06:15] LABS: INR 1.9; PROTHROMBIN TIME 19.8 sec (9.6-11.0)
[2023-01-26] MEDS: INSULIN LISPRO 100 UNITS/ML SUBCUT SCH ×4 (07:20→21:00)
[2023-01-26] MEDS: BLOOD SUGAR DIAGNOSTIC STRIP TEST SCH ×4 (07:20→21:37)
[2023-01-26 08:00] VITALS: BP 132/57
[2023-01-26] MEDS: LEVOTHYROXINE SODIUM 25MCG TABLET PO SCH (09:24)
[2023-01-26] MEDS: AMLODIPINE 5MG TABLET PO SCH (09:25)
[2023-01-26] MEDS: FUROSEMIDE 20MG/2ML VIAL IVP SCH (09:39)
[2023-01-26 12:00] VITALS: BP 125/68
[2023-01-26 12:58] LABS: FOLIC ACID (FOLATE) SERUM 11.4 ng/mL (>5.38)
[2023-01-26] MEDS: ENOXAPARIN 30MG/0.3ML SYR SUBCUT SCH (15:05)
[2023-01-26 16:00] VITALS: BP 112/50
[2023-01-26] MEDS: PANTOT AC/MIN OIL/PET HY-PHL OINT (AQUAPHOR) TOP SCH (18:01)
[2023-01-26] MEDS: WARFARIN SODIUM 4MG TABLET PO SCH (18:02)
[2023-01-26 20:00] VITALS: BP 134/38
[2023-01-26] MEDS: ATORVASTATIN CALCIUM 20MG TABLET PO SCH (21:59)
[2023-01-27] VITALS (8 sets, daily range): BP systolic 105–132; BP diastolic 31–76
[2023-01-27 06:31] LABS: EOSINOPHILS % 1.2 % (0.0-5.0); HEMATOCRIT. 31.1 % (36.0-48.0); HEMOGLOBIN. 9.9 g/dL (12.0-16.0); LYMPHOCYTES % 17.1 % (20.0-50.0); MEAN CORPUSCULAR HEMOGLOBIN 27.5 pg (28.0-32.0); MEAN CORPUSCULAR VOLUME 86.6 fL (81.0-99.0); MONOCYTES % 7.7 % (2.0-8.0); PLATELET 166 x1000/uL (130-400); RED BLOOD CELL COUNT 3.59 mill/uL (4.2-5.4); RED CELL DISTRIBUTION WIDTH 16.2 % (11.6-14.6)
[2023-01-27 06:32] LABS: INR 1.9
[2023-01-27] MEDS: SILDENAFIL CITRATE 20MG TABLET PO SCH ×3 (06:52→21:27)
[2023-01-27] MEDS: BLOOD SUGAR DIAGNOSTIC STRIP TEST SCH ×4 (07:40→21:00)
[2023-01-27] MEDS: INSULIN LISPRO 100 UNITS/ML SUBCUT SCH ×4 (08:10→21:26)
[2023-01-27] MEDS: LEVOTHYROXINE SODIUM 25MCG TABLET PO SCH (08:54)
[2023-01-27] MEDS: AMLODIPINE 5MG TABLET PO SCH (08:54)
[2023-01-27] MEDS: PANTOT AC/MIN OIL/PET HY-PHL OINT (AQUAPHOR) TOP SCH (08:55)
[2023-01-27] MEDS: FUROSEMIDE 20MG/2ML VIAL IVP SCH (09:00)
[2023-01-27] MEDS ORDERED: WARFARIN SODIUM 2MG TABLET PO ONE (10:15)
[2023-01-27] MEDS: ENOXAPARIN 30MG/0.3ML SYR SUBCUT SCH (14:38)
[2023-01-27] MEDS ORDERED: WARFARIN SODIUM 3MG TABLET PO SCH (18:00)
[2023-01-27] MEDS: ATORVASTATIN CALCIUM 20MG TABLET PO SCH (21:22)
[2023-01-28] VITALS: BP 127/48
[2023-01-28 04:00] VITALS: BP 125/48
[2023-01-28] MEDS: SILDENAFIL CITRATE 20MG TABLET PO SCH ×3 (06:12→21:56)
[2023-01-28] MEDS: BLOOD SUGAR DIAGNOSTIC STRIP TEST SCH ×4 (07:40→21:56)
[2023-01-28 08:00] VITALS: BP 126/51
[2023-01-28] MEDS: INSULIN LISPRO 100 UNITS/ML SUBCUT SCH ×4 (08:10→21:57)
[2023-01-28] MEDS: LEVOTHYROXINE SODIUM 25MCG TABLET PO SCH (08:49)
[2023-01-28] MEDS: FUROSEMIDE 20MG/2ML VIAL IVP SCH (08:49)
[2023-01-28] MEDS: AMLODIPINE 5MG TABLET PO SCH (08:54)
[2023-01-28] MEDS: PANTOT AC/MIN OIL/PET HY-PHL OINT (AQUAPHOR) TOP SCH (08:54)
[2023-01-28 11:23] VITALS: BP 130/49
[2023-01-28] MEDS: ENOXAPARIN 30MG/0.3ML SYR SUBCUT SCH (15:54)
[2023-01-28 16:00] VITALS: BP 116/56
[2023-01-28 17:46] LABS: INR 2.6; PROTHROMBIN TIME 26.5 sec (9.6-11.0)
[2023-01-28] MEDS ORDERED: WARFARIN SODIUM 3MG TABLET PO SCH (18:00)
[2023-01-28 20:00] VITALS: BP 126/35
[2023-01-28] MEDS: ATORVASTATIN CALCIUM 20MG TABLET PO SCH (21:55)
[2023-01-29] VITALS (10 sets, daily range): BP systolic 109–137; BP diastolic 39–90
[2023-01-29] MEDS: ACETAMINOPHEN 325MG TABLET PO PRN ×2 (02:07→22:30)
[2023-01-29] MEDS: SILDENAFIL CITRATE 20MG TABLET PO SCH ×3 (06:39→21:42)
[2023-01-29] MEDS: BLOOD SUGAR DIAGNOSTIC STRIP TEST SCH ×4 (07:40→21:41)
[2023-01-29 07:50] LABS: BASOPHILS % 0.9 % (0.0-2.0); EOSINOPHILS % 1.3 % (0.0-5.0); HEMATOCRIT. 27.9 % (36.0-48.0); LYMPHOCYTES % 18.8 % (20.0-50.0); MEAN CORPUSCULAR HEMOGLOBIN 27.5 pg (28.0-32.0); MEAN PLATELET VOLUME 8.6 fl (7.4-10.4); MONOCYTES % 9.7 % (2.0-8.0); NEUTROPHILS % 69.3 % (40.0-76.0); PLATELET 131 x1000/uL (130-400); RED BLOOD CELL COUNT 3.25 mill/uL (4.2-5.4); RED CELL DISTRIBUTION WIDTH 16.2 % (11.6-14.6)
[2023-01-29 08:18] LABS: INR 2.5; PROTHROMBIN TIME 25.3 sec (9.6-11.0)
[2023-01-29 08:56] LABS: PHOSPHORUS 3.8 mg/dL (2.5-4.9)
[2023-01-29] MEDS: INSULIN LISPRO 100 UNITS/ML SUBCUT SCH ×4 (09:00→21:00)
[2023-01-29] MEDS: FUROSEMIDE 20MG/2ML VIAL IVP SCH (09:03)
[2023-01-29] MEDS: LEVOTHYROXINE SODIUM 25MCG TABLET PO SCH (09:03)
[2023-01-29] MEDS: PANTOT AC/MIN OIL/PET HY-PHL OINT (AQUAPHOR) TOP SCH (09:03)
[2023-01-29] MEDS: AMLODIPINE 5MG TABLET PO SCH (09:03)
[2023-01-29] MEDS: POLYETHYLENE GLYCOL 3350 (17GM) 1 DOSE PACK PO SCH (11:51)
[2023-01-29] MEDS: DOCUSATE SODIUM 100MG CAPSULE PO SCH (17:15)
[2023-01-29] MEDS ORDERED: WARFARIN SODIUM 5MG TABLET PO SCH (18:00)
[2023-01-29] MEDS: ATORVASTATIN CALCIUM 20MG TABLET PO SCH (21:42)
[2023-01-30] VITALS: BP 114/66
[2023-01-30 04:00] VITALS: BP 119/80
[2023-01-30] MEDS: SILDENAFIL CITRATE 20MG TABLET PO SCH ×2 (06:19→13:12)
[2023-01-30 07:24] LABS: PROTHROMBIN TIME 30.3 sec (9.6-11.0)
[2023-01-30] MEDS: BLOOD SUGAR DIAGNOSTIC STRIP TEST SCH ×2 (07:40→12:40)
[2023-01-30 08:00] VITALS: BP 111/60
[2023-01-30] MEDS: INSULIN LISPRO 100 UNITS/ML SUBCUT SCH ×2 (08:10→13:12)
[2023-01-30] MEDS: LEVOTHYROXINE SODIUM 25MCG TABLET PO SCH (09:09)
[2023-01-30] MEDS: AMLODIPINE 5MG TABLET PO SCH (09:09)
[2023-01-30] MEDS: POLYETHYLENE GLYCOL 3350 (17GM) 1 DOSE PACK PO SCH (09:10)
[2023-01-30] MEDS: DOCUSATE SODIUM 100MG CAPSULE PO SCH (09:10)
[2023-01-30] MEDS: FUROSEMIDE 20MG/2ML VIAL IVP SCH (09:11)
[2023-01-30] MEDS: PANTOT AC/MIN OIL/PET HY-PHL OINT (AQUAPHOR) TOP SCH (09:11)
[2023-01-30 13:05] VITALS: BP 124/54
[2023-01-30 16:45] VITALS: BP 120/70
[2023-01-30 17:02] VITALS: BP 120/70
== END 2023-01-30 18:50 | disposition home or self-care (01) | DRG 291 ==
LOC: ER 09:09 → UNDOADMIN 13:42 → MICUSO 13:42 → EDBEDREQTM 13:54 → EDBEDREQ 13:54 → 7WST 13:57 → EDBEDREQ 14:04 → UNDOADMIN 18:26 → 7WST 18:26 → CVICU 01-15 10:00 → 7EST 01-18 14:57 → 6EST 01-20 18:59 → 7WST 01-23 23:37
PROVIDERS: ADMIT Internal Medicine; ATTEND Internal Medicine
PROC: 5A09457 Assistance with Respiratory Ventilation, 24-96 Consecutive Hours, Continuous Positive Airway Pressure (ICD-10-PCS; principal; 2023-01-15)
PROC: 5A1D70Z Performance of Urinary Filtration, Intermittent, Less than 6 Hours Per Day (ICD-10-PCS; 2023-01-15)
PROC: 05HM33Z Insertion of Infusion Device into Right Internal Jugular Vein, Percutaneous Approach (ICD-10-PCS; 2023-01-15)
PROC: B543ZZA Ultrasonography of Right Jugular Veins, Guidance (ICD-10-PCS; 2023-01-15)
PROC: 02HV33Z Insertion of Infusion Device into Superior Vena Cava, Percutaneous Approach (ICD-10-PCS; 2023-01-16)
PROC: B548ZZA Ultrasonography of Superior Vena Cava, Guidance (ICD-10-PCS; 2023-01-16)
PROC: 5A1D70Z Performance of Urinary Filtration, Intermittent, Less than 6 Hours Per Day (ICD-10-PCS; 2023-01-17)
PROC: 5A1D70Z Performance of Urinary Filtration, Intermittent, Less than 6 Hours Per Day (ICD-10-PCS; 2023-01-19)
PROC: 0JH63XZ Insertion of Tunneled Vascular Access Device into Chest Subcutaneous Tissue and Fascia, Percutaneous Approach (ICD-10-PCS; 2023-01-21)
PROC: 02HV33Z Insertion of Infusion Device into Superior Vena Cava, Percutaneous Approach (ICD-10-PCS; 2023-01-21)
PROC: B518YZA Fluoroscopy of Superior Vena Cava using Other Contrast, Guidance (ICD-10-PCS; 2023-01-21)
PROC: 5A1D70Z Performance of Urinary Filtration, Intermittent, Less than 6 Hours Per Day (ICD-10-PCS; 2023-01-21)
PROC: 5A09357 Assistance with Respiratory Ventilation, Less than 24 Consecutive Hours, Continuous Positive Airway Pressure (ICD-10-PCS; 2023-01-23)
PROC: 5A1D70Z Performance of Urinary Filtration, Intermittent, Less than 6 Hours Per Day (ICD-10-PCS; 2023-01-23)
PROC: 5A1D70Z Performance of Urinary Filtration, Intermittent, Less than 6 Hours Per Day (ICD-10-PCS; 2023-01-25)
PROC: 5A1D70Z Performance of Urinary Filtration, Intermittent, Less than 6 Hours Per Day (ICD-10-PCS; 2023-01-27)
PROC: 5A1D70Z Performance of Urinary Filtration, Intermittent, Less than 6 Hours Per Day (ICD-10-PCS; 2023-01-29)
DX: I13.0 Hypertensive heart and chronic kidney disease with heart failure and stage 1 through stage 4 chronic kidney disease, or unspecified chronic kidney disease (principal); G92.8 Other toxic encephalopathy; R57.0 Cardiogenic shock; J96.02 Acute respiratory failure with hypercapnia; J18.9 Pneumonia, unspecified organism; R65.11 Systemic inflammatory response syndrome (SIRS) of non-infectious origin with acute organ dysfunction; I50.43 Acute on chronic combined systolic (congestive) and diastolic (congestive) heart failure; N17.9 Acute kidney failure, unspecified; E87.29 Other acidosis; I42.8 Other cardiomyopathies; Z66 Do not resuscitate; E78.5 Hyperlipidemia, unspecified; N18.30 Chronic kidney disease, stage 3 unspecified; I48.0 Paroxysmal atrial fibrillation; E03.9 Hypothyroidism, unspecified; I08.1 Rheumatic disorders of both mitral and tricuspid valves; I27.20 Pulmonary hypertension, unspecified; E11.22 Type 2 diabetes mellitus with diabetic chronic kidney disease; M06.9 Rheumatoid arthritis, unspecified; R13.10 Dysphagia, unspecified; E11.40 Type 2 diabetes mellitus with diabetic neuropathy, unspecified; D50.9 Iron deficiency anemia, unspecified; D63.1 Anemia in chronic kidney disease; M19.90 Unspecified osteoarthritis, unspecified site; Z20.822 Contact with and (suspected) exposure to COVID-19; Z95.1 Presence of aortocoronary bypass graft; Z95.0 Presence of cardiac pacemaker; Z79.01 Long term (current) use of anticoagulants; Z79.84 Long term (current) use of oral hypoglycemic drugs; Z79.899 Other long term (current) drug therapy; Z79.4 Long term (current) use of insulin; Z82.49 Family history of ischemic heart disease and other diseases of the circulatory system; Z99.2 Dependence on renal dialysis
CPT/HCPCS: 36415; 36556; 36558; 36573; 36589; 36600; 71045; 76604; 76937; 77001; 78582; 80048; 80053; 80162; 81003; 82375; 82570; 82607; 82746; 82805; 82962; 83036; 83605; 83735; 83880; 83970; 84100; 84145; 84156; 84443; 84484; 85025; 86705; 86706; 86709; 86803; 87340; 87426; 90935; 93005; 93306; 93970; 94640; 94660; 97110; 97162; 97164; 97166; 97530; 99291; A9558; C1725; C1750; C1769; J0456; J0690; J0696; J1160; J1200; J1250; J1642; J1650; J1815; J1940; J2370; J3490; J7060; P9041; P9047; A4315

== ENCOUNTER 2023-02-03 11:35 | Inpatient (IN) | payer MEDICARE, MEDICAID ==
[2023-02-03] VITALS (9 sets, daily range): BP systolic 55–137; BP diastolic 25–105
[~2023-02-03] VITALS: Ht 157.5 cm; Wt 66.7 kg
[~2023-02-03 11:35] MED LIST changes: +AMLO5TAB88 PO; +ATOR20TA PO; -DILT240C96 PO; -METO-411 PO; -ROSU20TA2 PO
[2023-02-03 12:30] LABS: BASOPHILS % 0.8 % (0.0-2.0); EOSINOPHILS % 0.5 % (0.0-5.0); HEMATOCRIT. 28.2 % (36.0-48.0); HEMOGLOBIN. 8.9 g/dL (12.0-16.0); LYMPHOCYTES % 17.7 % (20.0-50.0); MEAN CORPUSCULAR HEMOGLOBIN 27.6 pg (28.0-32.0); MEAN PLATELET VOLUME 9.7 fl (7.4-10.4); MONOCYTES % 10.9 % (2.0-8.0); NEUTROPHILS % 70.1 % (40.0-76.0); PLATELET 258 x1000/uL (130-400); RED BLOOD CELL COUNT 3.24 mill/uL (4.2-5.4); RED CELL DISTRIBUTION WIDTH 17.5 % (11.6-14.6)
[2023-02-03] MEDS ORDERED: FUROSEMIDE 40MG/4ML VIAL IVP NR (14:45)
[2023-02-03 15:49] LABS: CHLORIDE 104 mEq/L (98-107)
[2023-02-03] MEDS ORDERED: FUROSEMIDE 100MG/10ML VIAL IV STA (15:58)
[2023-02-03] MEDS ORDERED: SODIUM POLYSTYRENE SULFONATE 15 G/60 ML BOT PO ONE (16:00)
[2023-02-03] MEDS ORDERED: INSULIN REGULAR (HUMULIN R) 300UNITS/3ML VIAL IV ONE (16:00)
[2023-02-03] MEDS ORDERED: SODIUM BICARBONATE 8.4% 1 MEQ/ML 50ML SYR IV ONE (16:00)
[2023-02-03] MEDS ORDERED: DEXTROSE 50% WATER 50ML SYRINGE IV ONE (16:00)
[2023-02-03] MEDS ORDERED: ALBUTEROL (0.083%) 2.5MG/3ML NEB HHN ONE (16:00)
[2023-02-03] MEDS ORDERED: CALCIUM CHLORIDE 1GM/10ML SYR IV ONE (16:00)
[2023-02-03] MEDS ORDERED: FUROSEMIDE 40MG/4ML VIAL IV NR (16:15)
[2023-02-03] MEDS ORDERED: SODIUM CHLORIDE 0.9% 1,000 ML IV ONE (18:15)
[2023-02-03] MEDS ORDERED: NOREPINEPHRINE 8 MG in DEXT 5% WATER 250 ML IV NR ×4 (18:30)
[2023-02-03 20:54] LABS: HEPATITIS B SURFACE ANTIGEN NEGATIVE
[2023-02-03] MEDS ORDERED: PIPERACILLIN/TAZ 3.375G PREMIX 50 ML IV NR (22:00)
[2023-02-03] MEDS ORDERED: ENOXAPARIN 60MG/0.6ML SYR SUBCUT SCH (22:00)
[2023-02-03] MEDS ORDERED: VANCOMYCIN 1.25GM PMX (XELLIA) 250 ML IV NR (22:30)
[2023-02-03] MEDS ORDERED: NOREPINEPHRINE 32 MG in DEXT 5% WATER 218 ML IV PRN (22:45)
[2023-02-03 23:33] LABS: CREATINE KINASE MB FRACTION 2.5 ng/mL (0.5-3.6)
[2023-02-03] MEDS: ATORVASTATIN CALCIUM 20MG TABLET PO SCH (23:52)
[2023-02-03] MEDS: LEVOTHYROXINE SODIUM 25MCG TABLET PO SCH (23:53)
[2023-02-03 23:59] LABS: PROTHROMBIN TIME 57.9 sec (9.6-11.0)
[2023-02-04] VITALS (109 sets, daily range): BP systolic 47–180; BP diastolic 20–162
[2023-02-04] MEDS: HYDROCODONE/ACETAMINOPHEN 5/325MG TABLET PO PRN (01:36)
[2023-02-04] MEDS: PIPERACILLIN/TAZOBACTAM 3.375 G in DEXTROSE 5% WATER 50 ML IV SCH ×3 (01:37→22:33)
[2023-02-04] MEDS: NOREPINEPHRINE 32 MG in DEXT 5% WATER 218 ML IV PRN ×2 (01:37→16:23)
[2023-02-04 05:54] LABS: BASOPHILS % 0.7 % (0.0-2.0); EOSINOPHILS % 0.1 % (0.0-5.0); HEMATOCRIT. 28.9 % (36.0-48.0); HEMOGLOBIN. 9.2 g/dL (12.0-16.0); LYMPHOCYTES % 20.6 % (20.0-50.0); MEAN CORPUSCULAR HEMOGLOBIN 27.3 pg (28.0-32.0); MEAN CORPUSCULAR VOLUME 85.8 fL (81.0-99.0); MEAN PLATELET VOLUME 9.8 fl (7.4-10.4); MONOCYTES % 12.4 % (2.0-8.0); NEUTROPHILS % 66.2 % (40.0-76.0); PLATELET 312 x1000/uL (130-400); RED BLOOD CELL COUNT 3.37 mill/uL (4.2-5.4); RED CELL DISTRIBUTION WIDTH 17.2 % (11.6-14.6)
[2023-02-04 06:04] LABS: PROTHROMBIN TIME 60.4 sec (9.6-11.0)
[2023-02-04 06:10] LABS: BG BASE EXCESS -10.6 mmol/L (-2.0-2.0); BG CARBOXYHEMOGLOBIN 0.7 % (0.5-1.5); BG DEOXYHEMOGLOBIN 14.3 % (0.0-5.0); BG FRACTION INSPIRED OXYGEN 44; BG HCO3 ACT 20.1 mmol/L (22.0-26.0); BG OXYGEN SATURATION 85.6 % (92.0-98.5); BG PCO2 72.3 mmHg (35.0-45.0); BG PH 7.062 (7.350-7.450); BG PO2 60.4 mmHg (75.0-100.0); BG SAMPLE SITE RIGHT BRACHIAL; BG TOTAL HEMOGLOBIN 10.7 g/dL (12.0-18.0); BG VENT MODE MASK - SIMPLE
[2023-02-04] MEDS: LEVOTHYROXINE SODIUM 25MCG TABLET PO SCH (06:25)
[2023-02-04 06:38] LABS: CREATINE KINASE MB FRACTION 2.1 ng/mL (0.5-3.6)
[2023-02-04 07:37] LABS: INR 6.3
[2023-02-04] MEDS ORDERED: PIPERACILLIN/TAZOBACTAM 3.375 G in DEXTROSE 5% WATER 50 ML IV SCH (09:00)
[2023-02-04] MEDS: CALCITRIOL 0.25MCG CAPSULE PO SCH (09:00)
[2023-02-04] MEDS ORDERED: CALCIUM GLUCONATE 1,000 MG in DEXT 5% WATER 90 ML IV NR (10:00)
[2023-02-04 10:16] LABS: BG BASE EXCESS -9.1 mmol/L (-2.0-2.0); BG CARBOXYHEMOGLOBIN 0.3 % (0.5-1.5); BG DEOXYHEMOGLOBIN 2.6 % (0.0-5.0); BG FRACTION INSPIRED OXYGEN 60; BG HCO3 ACT 18.7 mmol/L (22.0-26.0); BG METHEMOGLOBIN 0.1 % (0.0-1.5); BG OXYGEN SATURATION 97.4 % (92.0-98.5); BG PCO2 49.3 mmHg (35.0-45.0); BG PH 7.197 (7.350-7.450); BG SAMPLE SITE RIGHT BRACHIAL; BG TOTAL HEMOGLOBIN 9.9 g/dL (12.0-18.0); BG TOTAL RESPIRATORY RATE 30 b/min; BG VENT MODE MASK - BIPAP
[2023-02-04] MEDS ORDERED: NALOXONE HCL 0.4MG/ML VIAL IV PRN (11:45)
[2023-02-04 15:11] LABS: BG BASE EXCESS -3.8 mmol/L (-2.0-2.0); BG CARBOXYHEMOGLOBIN 0.1 % (0.5-1.5); BG DEOXYHEMOGLOBIN 1.3 % (0.0-5.0); BG FRACTION INSPIRED OXYGEN 60; BG HCO3 ACT 22.6 mmol/L (22.0-26.0); BG METHEMOGLOBIN 0.2 % (0.0-1.5); BG OXYGEN SATURATION 98.7 % (92.0-98.5); BG OXYHEMOGLOBIN 98.4 % (94.0-97.0); BG PH 7.299 (7.350-7.450); BG PO2 139.9 mmHg (75.0-100.0); BG SAMPLE SITE RIGHT BRACHIAL; BG TOTAL HEMOGLOBIN 9.9 g/dL (12.0-18.0); BG TOTAL RESPIRATORY RATE 30 b/min; BG VENT MODE MASK - BIPAP
[2023-02-04] MEDS: PHENYLEPHRINE 100 MG in DEXT 5% WATER 240 ML IV PRN (20:13)
[2023-02-04] MEDS: ATORVASTATIN CALCIUM 20MG TABLET PO SCH (20:15)
[2023-02-04] MEDS ORDERED: ENOXAPARIN 60MG/0.6ML SYR SUBCUT SCH (21:00)
[2023-02-05] VITALS (100 sets, daily range): BP systolic 50–147; BP diastolic 28–86
[2023-02-05 05:56] LABS: BASOPHILS % 0.8 % (0.0-2.0); EOSINOPHILS % 0.4 % (0.0-5.0); HEMOGLOBIN. 7.6 g/dL (12.0-16.0); LYMPHOCYTES % 15.6 % (20.0-50.0); MEAN CORPUSCULAR HEMOGLOBIN 27.3 pg (28.0-32.0); MEAN CORPUSCULAR VOLUME 86.3 fL (81.0-99.0); MEAN PLATELET VOLUME 9.5 fl (7.4-10.4); MONOCYTES % 11.9 % (2.0-8.0); NEUTROPHILS % 71.3 % (40.0-76.0); PLATELET 205 x1000/uL (130-400); RED BLOOD CELL COUNT 2.78 mill/uL (4.2-5.4); RED CELL DISTRIBUTION WIDTH 16.8 % (11.6-14.6)
[2023-02-05 06:04] LABS: PROTHROMBIN TIME 50.8 sec (9.6-11.0)
[2023-02-05] MEDS: LEVOTHYROXINE SODIUM 25MCG TABLET PO SCH (06:13)
[2023-02-05] MEDS: ACETAMINOPHEN 325MG TABLET PO PRN (06:14)
[2023-02-05 06:16] LABS: PHOSPHORUS 3.9 mg/dL (2.5-4.9)
[2023-02-05 06:46] LABS: INR 5.2
[2023-02-05] MEDS ORDERED: DEXTROSE 50% WATER 50ML SYRINGE IV PRN (07:15)
[2023-02-05 08:17] LABS: BG BASE EXCESS -1.7 mmol/L (-2.0-2.0); BG CARBOXYHEMOGLOBIN 0.8 % (0.5-1.5); BG DEOXYHEMOGLOBIN 1.1 % (0.0-5.0); BG FRACTION INSPIRED OXYGEN 50; BG HCO3 ACT 23.9 mmol/L (22.0-26.0); BG METHEMOGLOBIN 0.3 % (0.0-1.5); BG OXYGEN SATURATION 98.9 % (92.0-98.5); BG OXYHEMOGLOBIN 97.8 % (94.0-97.0); BG PCO2 44.8 mmHg (35.0-45.0); BG PH 7.345 (7.350-7.450); BG PO2 153.3 mmHg (75.0-100.0); BG SAMPLE SITE RIGHT BRACHIAL; BG TOTAL HEMOGLOBIN 7.9 g/dL (12.0-18.0); BG TOTAL RESPIRATORY RATE 22 b/min; BG VENT MODE MASK - BIPAP
[2023-02-05] MEDS: IPRATROPIUM/ALBUTEROL 0.5-3(2.5)MG/3ML NEB NEB PRN (08:40)
[2023-02-05] MEDS: PIPERACILLIN/TAZOBACTAM 3.375 G in DEXTROSE 5% WATER 50 ML IV SCH ×2 (09:55→21:21)
[2023-02-05] MEDS ORDERED: NALOXONE HCL 0.4MG/ML VIAL IV PRN (10:00)
[2023-02-05] MEDS ORDERED: VANCOMYCIN 750MG PREMIX 150 ML IV NR (11:00)
[2023-02-05 11:15] LABS: BASOPHILS % 0.9 % (0.0-2.0); EOSINOPHILS % 0.5 % (0.0-5.0); HEMATOCRIT. 23.1 % (36.0-48.0); HEMOGLOBIN. 7.3 g/dL (12.0-16.0); LYMPHOCYTES % 14.7 % (20.0-50.0); MEAN CORPUSCULAR HEMOGLOBIN 27.2 pg (28.0-32.0); MEAN PLATELET VOLUME 9.6 fl (7.4-10.4); MONOCYTES % 11.2 % (2.0-8.0); NEUTROPHILS % 72.7 % (40.0-76.0); PLATELET 202 x1000/uL (130-400); RED BLOOD CELL COUNT 2.68 mill/uL (4.2-5.4); RED CELL DISTRIBUTION WIDTH 16.7 % (11.6-14.6)
[2023-02-05] MEDS: BLOOD SUGAR DIAGNOSTIC STRIP TEST SCH ×3 (11:30→21:03)
[2023-02-05] MEDS: INSULIN LISPRO 100 UNITS/ML SUBCUT SCH ×3 (12:00→21:00)
[2023-02-05] MEDS ORDERED: NOREPINEPHRINE 32 MG in DEXT 5% WATER 218 ML IV PRN (12:07)
[2023-02-05] MEDS: MIDODRINE HCL 5MG TABLET PO SCH ×2 (12:35→17:36)
[2023-02-05] MEDS: CALCITRIOL 0.25MCG CAPSULE PO SCH (12:35)
[2023-02-05] MEDS: ATORVASTATIN CALCIUM 20MG TABLET PO SCH (21:21)
[2023-02-06] VITALS (85 sets, daily range): BP systolic 78–162; BP diastolic 25–100
[2023-02-06 05:13] LABS: EOSINOPHILS % 1.5 % (0.0-5.0); HEMATOCRIT. 23.3 % (36.0-48.0); HEMOGLOBIN. 7.4 g/dL (12.0-16.0); LYMPHOCYTES % 14.6 % (20.0-50.0); MEAN CORPUSCULAR HEMOGLOBIN 27.4 pg (28.0-32.0); MEAN CORPUSCULAR VOLUME 86.1 fL (81.0-99.0); MEAN PLATELET VOLUME 8.7 fl (7.4-10.4); MONOCYTES % 9.9 % (2.0-8.0); PLATELET 176 x1000/uL (130-400); RED BLOOD CELL COUNT 2.71 mill/uL (4.2-5.4); RED CELL DISTRIBUTION WIDTH 16.9 % (11.6-14.6)
[2023-02-06] MEDS: BLOOD SUGAR DIAGNOSTIC STRIP TEST SCH ×4 (05:14→20:00)
[2023-02-06 05:31] LABS: PROTHROMBIN TIME 43.5 sec (9.6-11.0)
[2023-02-06 05:42] LABS: INR 4.4
[2023-02-06] MEDS: INSULIN LISPRO 100 UNITS/ML SUBCUT SCH ×4 (06:02→20:00)
[2023-02-06] MEDS: LEVOTHYROXINE SODIUM 25MCG TABLET PO SCH (06:02)
[2023-02-06 06:17] LABS: PHOSPHORUS 4.8 mg/dL (2.5-4.9)
[2023-02-06] MEDS: PIPERACILLIN/TAZOBACTAM 3.375 G in DEXTROSE 5% WATER 50 ML IV SCH ×2 (08:27→22:04)
[2023-02-06] MEDS: MIDODRINE HCL 5MG TABLET PO SCH (08:28)
[2023-02-06] MEDS: PHENYLEPHRINE 100 MG in DEXT 5% WATER 240 ML IV PRN (08:30)
[2023-02-06] MEDS: CALCITRIOL 0.25MCG CAPSULE PO SCH (10:17)
[2023-02-06] MEDS: MIDODRINE HCL 2.5MG TABLET PO SCH ×2 (12:23→17:28)
[2023-02-06] MEDS: ATORVASTATIN CALCIUM 20MG TABLET PO SCH (21:11)
[2023-02-06] MEDS: HYDROCODONE/ACETAMINOPHEN 5/325MG TABLET PO PRN (21:11)
[2023-02-07] VITALS (24 sets, daily range): BP systolic 70–155; BP diastolic 36–98
[2023-02-07 05:24] LABS: BASOPHILS % 1.1 % (0.0-2.0); EOSINOPHILS % 1.9 % (0.0-5.0); HEMATOCRIT. 22.9 % (36.0-48.0); HEMOGLOBIN. 7.4 g/dL (12.0-16.0); LYMPHOCYTES % 10.7 % (20.0-50.0); MEAN CORPUSCULAR HEMOGLOBIN 27.7 pg (28.0-32.0); MEAN CORPUSCULAR VOLUME 85.1 fL (81.0-99.0); MEAN PLATELET VOLUME 9.1 fl (7.4-10.4); NEUTROPHILS % 77.3 % (40.0-76.0); PLATELET 191 x1000/uL (130-400); RED BLOOD CELL COUNT 2.69 mill/uL (4.2-5.4); RED CELL DISTRIBUTION WIDTH 16.5 % (11.6-14.6)
[2023-02-07 05:39] LABS: PHOSPHORUS 4.1 mg/dL (2.5-4.9)
[2023-02-07 05:49] LABS: INR 3.1; PROTHROMBIN TIME 30.6 sec (9.6-11.0)
[2023-02-07] MEDS: BLOOD SUGAR DIAGNOSTIC STRIP TEST SCH ×4 (06:11→21:14)
[2023-02-07] MEDS: LEVOTHYROXINE SODIUM 25MCG TABLET PO SCH (06:11)
[2023-02-07] MEDS: INSULIN LISPRO 100 UNITS/ML SUBCUT SCH ×4 (06:11→21:00)
[2023-02-07] MEDS: PIPERACILLIN/TAZOBACTAM 3.375 G in DEXTROSE 5% WATER 50 ML IV SCH ×2 (08:05→22:35)
[2023-02-07] MEDS: MIDODRINE HCL 2.5MG TABLET PO SCH ×3 (08:06→17:00)
[2023-02-07] MEDS: CALCITRIOL 0.25MCG CAPSULE PO SCH (08:06)
[2023-02-07 10:13] LABS: BG BASE EXCESS -1.5 mmol/L (-2.0-2.0); BG CARBOXYHEMOGLOBIN 1.1 % (0.5-1.5); BG DEOXYHEMOGLOBIN 4.4 % (0.0-5.0); BG FRACTION INSPIRED OXYGEN 32; BG HCO3 ACT 24.8 mmol/L (22.0-26.0); BG METHEMOGLOBIN 0.3 % (0.0-1.5); BG OXYGEN SATURATION 95.5 % (92.0-98.5); BG OXYHEMOGLOBIN 94.2 % (94.0-97.0); BG PCO2 49.6 mmHg (35.0-45.0); BG PH 7.316 (7.350-7.450); BG SAMPLE SITE RIGHT BRACHIAL; BG TOTAL HEMOGLOBIN 8.3 g/dL (12.0-18.0); BG VENT MODE NASAL CANNULA
[2023-02-07] MEDS: IPRATROPIUM/ALBUTEROL 0.5-3(2.5)MG/3ML NEB NEB PRN (15:15)
[2023-02-07] MEDS: FAMOTIDINE 20MG/2ML VIAL IV SCH (18:07)
[2023-02-07] MEDS ORDERED: VANCOMYCIN 750MG PREMIX 150 ML IV NR (21:00)
[2023-02-07] MEDS ORDERED: FAMOTIDINE 20MG TABLET PO SCH (21:00)
[2023-02-07] MEDS: ATORVASTATIN CALCIUM 20MG TABLET PO SCH (21:13)
[2023-02-07] MEDS: HYDROCODONE/ACETAMINOPHEN 5/325MG TABLET PO PRN (21:40)
[2023-02-07] MEDS ORDERED: ALBUTEROL (0.083%) 2.5MG/3ML NEB HHN PRN (23:45)
[2023-02-07] MEDS ORDERED: IPRATROPIUM BROMIDE (0.02%) 0.5MG/2.5ML NEB HHN PRN (23:45)
[2023-02-08] VITALS: BP 120/57
[2023-02-08 04:00] VITALS: BP 131/52
[2023-02-08] MEDS: BLOOD SUGAR DIAGNOSTIC STRIP TEST SCH ×4 (05:52→21:04)
[2023-02-08] MEDS: INSULIN LISPRO 100 UNITS/ML SUBCUT SCH ×4 (05:52→21:00)
[2023-02-08] MEDS: LEVOTHYROXINE SODIUM 25MCG TABLET PO SCH (05:53)
[2023-02-08 07:05] LABS: EOSINOPHILS % 2.8 % (0.0-5.0); HEMATOCRIT. 24.5 % (36.0-48.0); HEMOGLOBIN. 7.8 g/dL (12.0-16.0); LYMPHOCYTES % 16.7 % (20.0-50.0); MEAN CORPUSCULAR HEMOGLOBIN 26.9 pg (28.0-32.0); MEAN PLATELET VOLUME 9.6 fl (7.4-10.4); MONOCYTES % 9.5 % (2.0-8.0); PLATELET 227 x1000/uL (130-400); RED BLOOD CELL COUNT 2.89 mill/uL (4.2-5.4); RED CELL DISTRIBUTION WIDTH 16.7 % (11.6-14.6)
[2023-02-08 08:00] VITALS: BP 164/56
[2023-02-08] MEDS: MIDODRINE HCL 2.5MG TABLET PO SCH (08:26)
[2023-02-08] MEDS: FAMOTIDINE 20MG/2ML VIAL IV SCH (08:35)
[2023-02-08] MEDS: PIPERACILLIN/TAZOBACTAM 3.375 G in DEXTROSE 5% WATER 50 ML IV SCH ×2 (08:36→21:05)
[2023-02-08] MEDS: CALCITRIOL 0.25MCG CAPSULE PO SCH (08:36)
[2023-02-08] MEDS ORDERED: HYDRALAZINE 20MG/ML VIAL IV PRN (09:30)
[2023-02-08 12:00] VITALS: BP 143/62
[2023-02-08 16:00] VITALS: BP 140/63
[2023-02-08 20:00] VITALS: BP 143/61
[2023-02-08] MEDS: ATORVASTATIN CALCIUM 20MG TABLET PO SCH (21:03)
[2023-02-08] MEDS: METOPROLOL TARTRATE 50MG TABLET PO SCH (21:04)
[2023-02-08] MEDS: HYDROCODONE/ACETAMINOPHEN 5/325MG TABLET PO PRN (23:26)
[2023-02-09] VITALS (15 sets, daily range): BP systolic 113–146; BP diastolic 53–78
[2023-02-09] MEDS: INSULIN LISPRO 100 UNITS/ML SUBCUT SCH ×4 (06:40→20:45)
[2023-02-09] MEDS: LEVOTHYROXINE SODIUM 25MCG TABLET PO SCH (06:40)
[2023-02-09] MEDS: BLOOD SUGAR DIAGNOSTIC STRIP TEST SCH ×4 (06:40→20:45)
[2023-02-09] MEDS: FAMOTIDINE 20MG TABLET PO SCH (08:18)
[2023-02-09] MEDS: CALCITRIOL 0.25MCG CAPSULE PO SCH (08:19)
[2023-02-09] MEDS: METOPROLOL TARTRATE 50MG TABLET PO SCH ×2 (08:19→20:44)
[2023-02-09] MEDS: ATORVASTATIN CALCIUM 20MG TABLET PO SCH (20:43)
[2023-02-10] VITALS: BP 167/67
[2023-02-10 04:00] VITALS: BP 158/71
[2023-02-10 05:58] LABS: INR 1.6; PROTHROMBIN TIME 17.1 sec (9.6-11.0)
[2023-02-10] MEDS: LEVOTHYROXINE SODIUM 25MCG TABLET PO SCH (05:59)
[2023-02-10] MEDS: BLOOD SUGAR DIAGNOSTIC STRIP TEST SCH ×4 (05:59→21:31)
[2023-02-10 06:20] LABS: EOSINOPHILS % 1.7 % (0.0-5.0); HEMATOCRIT. 23.2 % (36.0-48.0); HEMOGLOBIN. 7.4 g/dL (12.0-16.0); LYMPHOCYTES % 12.3 % (20.0-50.0); MEAN CORPUSCULAR HEMOGLOBIN 26.8 pg (28.0-32.0); MEAN CORPUSCULAR VOLUME 84.6 fL (81.0-99.0); MEAN PLATELET VOLUME 9.3 fl (7.4-10.4); MONOCYTES % 7.9 % (2.0-8.0); NEUTROPHILS % 77.1 % (40.0-76.0); PLATELET 218 x1000/uL (130-400); RED BLOOD CELL COUNT 2.75 mill/uL (4.2-5.4); RED CELL DISTRIBUTION WIDTH 16.8 % (11.6-14.6)
[2023-02-10] MEDS: INSULIN LISPRO 100 UNITS/ML SUBCUT SCH ×4 (07:10→21:00)
[2023-02-10 08:00] VITALS: BP 152/70
[2023-02-10] MEDS: CALCITRIOL 0.25MCG CAPSULE PO SCH (08:24)
[2023-02-10] MEDS: METOPROLOL TARTRATE 50MG TABLET PO SCH ×2 (08:24→21:31)
[2023-02-10] MEDS: FAMOTIDINE 20MG TABLET PO SCH (08:24)
[2023-02-10 12:00] VITALS: BP 146/71
[2023-02-10] MEDS ORDERED: POTASSIUM CHLORIDE 20MEQ TABLET SR PO NR (14:30)
[2023-02-10 16:00] VITALS: BP_SYST 59
[2023-02-10 17:54] LABS: TOTAL IRON BINDING CAPACITY 234 ug/dL (250-450)
[2023-02-10] MEDS: WARFARIN SODIUM 5MG TABLET PO SCH (18:15)
[2023-02-10 20:00] VITALS: BP 121/50
[2023-02-10] MEDS: ATORVASTATIN CALCIUM 20MG TABLET PO SCH (21:31)
[2023-02-11] VITALS (16 sets, daily range): BP systolic 120–160; BP diastolic 40–72
[2023-02-11] MEDS: FAMOTIDINE 20MG TABLET PO SCH (05:15)
[2023-02-11] MEDS: INSULIN LISPRO 100 UNITS/ML SUBCUT SCH ×4 (05:57→21:58)
[2023-02-11] MEDS: BLOOD SUGAR DIAGNOSTIC STRIP TEST SCH ×4 (05:57→21:38)
[2023-02-11] MEDS: LEVOTHYROXINE SODIUM 25MCG TABLET PO SCH (05:58)
[2023-02-11 06:01] LABS: BASOPHILS % 0.8 % (0.0-2.0); EOSINOPHILS % 2.4 % (0.0-5.0); HEMATOCRIT. 23.9 % (36.0-48.0); HEMOGLOBIN. 7.9 g/dL (12.0-16.0); MEAN CORPUSCULAR HEMOGLOBIN 27.7 pg (28.0-32.0); MEAN CORPUSCULAR VOLUME 83.7 fL (81.0-99.0); MEAN PLATELET VOLUME 8.5 fl (7.4-10.4); MONOCYTES % 8.3 % (2.0-8.0); NEUTROPHILS % 74.5 % (40.0-76.0); PLATELET 195 x1000/uL (130-400); RED BLOOD CELL COUNT 2.85 mill/uL (4.2-5.4); RED CELL DISTRIBUTION WIDTH 16.8 % (11.6-14.6)
[2023-02-11 06:07] LABS: INR 1.4; PROTHROMBIN TIME 14.8 sec (9.6-11.0)
[2023-02-11] MEDS: CALCITRIOL 0.25MCG CAPSULE PO SCH (09:26)
[2023-02-11] MEDS: METOPROLOL TARTRATE 50MG TABLET PO SCH ×2 (09:30→21:57)
[2023-02-11] MEDS: WARFARIN SODIUM 5MG TABLET PO SCH (18:25)
[2023-02-11] MEDS: ATORVASTATIN CALCIUM 20MG TABLET PO SCH (21:56)
[2023-02-11] MEDS: ACETAMINOPHEN 325MG TABLET PO PRN (21:57)
[2023-02-11] MEDS ORDERED: POTASSIUM CHLORIDE 20MEQ TABLET SR PO NR (22:45)
[2023-02-11] MEDS ORDERED: ONDANSETRON HCL 4MG/2ML INJ IV PRN (22:45)
[2023-02-12] VITALS: BP 124/55
[2023-02-12 04:00] VITALS: BP 112/44
[2023-02-12] MEDS: INSULIN LISPRO 100 UNITS/ML SUBCUT SCH ×4 (06:12→21:27)
[2023-02-12] MEDS: BLOOD SUGAR DIAGNOSTIC STRIP TEST SCH ×4 (06:12→21:25)
[2023-02-12] MEDS: LEVOTHYROXINE SODIUM 25MCG TABLET PO SCH (06:20)
[2023-02-12 08:10] VITALS: BP 118/50
[2023-02-12] MEDS: CALCITRIOL 0.25MCG CAPSULE PO SCH (08:56)
[2023-02-12] MEDS: METOPROLOL TARTRATE 50MG TABLET PO SCH ×2 (08:56→21:25)
[2023-02-12] MEDS: FAMOTIDINE 20MG TABLET PO SCH (08:56)
[2023-02-12 10:30] LABS: BASOPHILS % 0.9 % (0.0-2.0); EOSINOPHILS % 2.2 % (0.0-5.0); LYMPHOCYTES % 15.4 % (20.0-50.0); MEAN CORPUSCULAR VOLUME 84.4 fL (81.0-99.0); MEAN PLATELET VOLUME 9.4 fl (7.4-10.4); MONOCYTES % 8.4 % (2.0-8.0); NEUTROPHILS % 73.1 % (40.0-76.0); PLATELET 224 x1000/uL (130-400); RED BLOOD CELL COUNT 2.96 mill/uL (4.2-5.4); RED CELL DISTRIBUTION WIDTH 16.4 % (11.6-14.6)
[2023-02-12 10:38] LABS: INR 1.5; PROTHROMBIN TIME 16.1 sec (9.6-11.0)
[2023-02-12 12:10] VITALS: BP 119/55
[2023-02-12 16:25] VITALS: BP 131/50
[2023-02-12] MEDS: WARFARIN SODIUM 5MG TABLET PO SCH (16:55)
[2023-02-12 17:20] LABS: T4 FREE 1.33 ng/dL (0.76-1.46)
[2023-02-12 20:00] VITALS: BP 134/65
[2023-02-12] MEDS: ATORVASTATIN CALCIUM 20MG TABLET PO SCH (21:24)
[2023-02-13] VITALS (11 sets, daily range): BP systolic 122–162; BP diastolic 6–70
[2023-02-13 06:09] LABS: INR 1.8; PROTHROMBIN TIME 18.4 sec (9.6-11.0)
[2023-02-13] MEDS: LEVOTHYROXINE SODIUM 25MCG TABLET PO SCH (06:32)
[2023-02-13] MEDS: BLOOD SUGAR DIAGNOSTIC STRIP TEST SCH ×2 (06:33→11:40)
[2023-02-13] MEDS: INSULIN LISPRO 100 UNITS/ML SUBCUT SCH ×2 (06:34→12:10)
[2023-02-13] MEDS: CALCITRIOL 0.25MCG CAPSULE PO SCH (09:12)
[2023-02-13] MEDS: METOPROLOL TARTRATE 50MG TABLET PO SCH (09:12)
[2023-02-13] MEDS: FAMOTIDINE 20MG TABLET PO SCH (09:12)
== END 2023-02-13 15:39 | DRG 682 ==
LOC: ER 11:35 → MICUSO 16:06 → EDBEDREQ 16:08 → EDBEDREQSVC 16:08 → EDBEDREQTM 16:08 → EDBEDREQSVC 18:10 → 7EST 02-07 17:57
PROVIDERS: ADMIT Internal Medicine; ATTEND Internal Medicine
PROC: 02HV33Z Insertion of Infusion Device into Superior Vena Cava, Percutaneous Approach (ICD-10-PCS; principal; 2023-02-04)
PROC: B548ZZA Ultrasonography of Superior Vena Cava, Guidance (ICD-10-PCS; 2023-02-04)
PROC: 5A09457 Assistance with Respiratory Ventilation, 24-96 Consecutive Hours, Continuous Positive Airway Pressure (ICD-10-PCS; 2023-02-04)
PROC: 5A1D70Z Performance of Urinary Filtration, Intermittent, Less than 6 Hours Per Day (ICD-10-PCS; 2023-02-04)
PROC: 5A09357 Assistance with Respiratory Ventilation, Less than 24 Consecutive Hours, Continuous Positive Airway Pressure (ICD-10-PCS; 2023-02-06)
PROC: 5A1D70Z Performance of Urinary Filtration, Intermittent, Less than 6 Hours Per Day (ICD-10-PCS; 2023-02-06)
PROC: 5A09357 Assistance with Respiratory Ventilation, Less than 24 Consecutive Hours, Continuous Positive Airway Pressure (ICD-10-PCS; 2023-02-07)
PROC: 5A1D70Z Performance of Urinary Filtration, Intermittent, Less than 6 Hours Per Day (ICD-10-PCS; 2023-02-07)
PROC: 5A1D70Z Performance of Urinary Filtration, Intermittent, Less than 6 Hours Per Day (ICD-10-PCS; 2023-02-09)
PROC: 5A1D70Z Performance of Urinary Filtration, Intermittent, Less than 6 Hours Per Day (ICD-10-PCS; 2023-02-11)
PROC: 5A1D70Z Performance of Urinary Filtration, Intermittent, Less than 6 Hours Per Day (ICD-10-PCS; 2023-02-13)
DX: N17.0 Acute kidney failure with tubular necrosis (principal); I50.21 Acute systolic (congestive) heart failure; J96.01 Acute respiratory failure with hypoxia; R57.0 Cardiogenic shock; J96.21 Acute and chronic respiratory failure with hypoxia; I13.2 Hypertensive heart and chronic kidney disease with heart failure and with stage 5 chronic kidney disease, or end stage renal disease; I48.19 Other persistent atrial fibrillation; I42.0 Dilated cardiomyopathy; E87.29 Other acidosis; E87.1 Hypo-osmolality and hyponatremia; N18.6 End stage renal disease; E87.5 Hyperkalemia; E03.9 Hypothyroidism, unspecified; I27.20 Pulmonary hypertension, unspecified; E11.22 Type 2 diabetes mellitus with diabetic chronic kidney disease; E78.5 Hyperlipidemia, unspecified; I05.0 Rheumatic mitral stenosis; I05.8 Other rheumatic mitral valve diseases; I49.5 Sick sinus syndrome; M06.9 Rheumatoid arthritis, unspecified; R79.1 Abnormal coagulation profile; E11.40 Type 2 diabetes mellitus with diabetic neuropathy, unspecified; D63.1 Anemia in chronic kidney disease; I95.1 Orthostatic hypotension; T45.515A Adverse effect of anticoagulants, initial encounter; Z66 Do not resuscitate; Z79.899 Other long term (current) drug therapy; Z79.01 Long term (current) use of anticoagulants; Z79.4 Long term (current) use of insulin; Z95.0 Presence of cardiac pacemaker; Z95.1 Presence of aortocoronary bypass graft; Z99.2 Dependence on renal dialysis; W18.30XA Fall on same level, unspecified, initial encounter; Y93.01 Activity, walking, marching and hiking; Y92.002 Bathroom of unspecified non-institutional (private) residence as the place of occurrence of the external cause; Y99.8 Other external cause status
CPT/HCPCS: 36415; 36573; 36600; 71045; 73562; 73590; 73610; 73630; 80048; 80053; 80202; 82270; 82375; 82550; 82553; 82805; 82962; 83036; 83540; 83550; 83605; 83735; 83880; 84100; 84145; 84439; 84443; 84484; 85025; 86705; 86709; 86803; 87340; 87426; 87804; 90935; 92610; 93005; 93971; 94640; 94644; 94660; 97116; 97162; 97530; 99291; C1725; C1893; C9803; J0360; J0610; J1815; J1940; J2370; J2543; J3370; J3490; J7060

== ENCOUNTER 2023-06-05 16:12 | Inpatient (IN) | payer MEDICARE, MEDICAID ==
[2023-06-05] VITALS (9 sets, daily range): BP systolic 114–143; BP diastolic 66; PULSE 66–143; RESP 20–24; TEMP 97.5–98.8
[~2023-06-05] VITALS: Ht 154.9 cm; Wt 70.8 kg
[2023-06-05] MEDS ORDERED: LACTULOSE 20G/30ML UDC PO PRN (17:00)
[2023-06-05] MEDS ORDERED: DEXTROSE 50% WATER 50ML SYRINGE IV PRN (17:15)
[2023-06-05] MEDS: INSULIN LISPRO 100 UNITS/ML SUBCUT SCH ×2 (17:30→21:35)
[2023-06-05] MEDS: BLOOD SUGAR DIAGNOSTIC STRIP TEST SCH ×2 (17:30→21:02)
[2023-06-05] MEDS ORDERED: DIPHENHYDRAMINE 50MG/ML VIAL IM PRN ×2 (17:30→18:30)
[2023-06-05] MEDS ORDERED: ONDANSETRON HCL 4MG/2ML INJ IV PRN (17:30)
[2023-06-05] MEDS: DILTIAZEM HCL 30MG TABLET PO SCH (18:00)
[2023-06-05] MEDS ORDERED: CLONIDINE 0.1MG TABLET PO PRN (18:00)
[2023-06-05] MEDS: BRIMONIDINE 0.2% OPHTH DROPS 10ML BOTHEYE SCH (21:05)
[2023-06-05] MEDS: GUAIFENESIN 200MG/10ML SUGAR FREE UDC PO PRN (21:06)
[2023-06-05] MEDS: ATORVASTATIN CALCIUM 20MG TABLET PO SCH (21:06)
[2023-06-05] MEDS: SODIUM CHLORIDE 0.9% INJ 3ML FLUSH IVF SCH (22:00)
[2023-06-06] MEDS: DILTIAZEM HCL 30MG TABLET PO SCH ×4 (00:23→18:11)
[2023-06-06] MEDS: SODIUM CHLORIDE 0.9% INJ 3ML FLUSH IVF SCH ×3 (06:53→22:02)
[2023-06-06] MEDS: BLOOD SUGAR DIAGNOSTIC STRIP TEST SCH ×4 (06:53→20:46)
[2023-06-06] MEDS: LEVOTHYROXINE SODIUM 25MCG TABLET PO SCH (06:54)
[2023-06-06] MEDS: INSULIN LISPRO 100 UNITS/ML SUBCUT SCH ×4 (07:00→21:17)
[2023-06-06 08:00] VITALS: BP 99/59; PULSE 89; RESP 16; TEMP 97.6
[2023-06-06 08:05] LABS: BASOPHILS % 0.5 % (0.0-2.0); EOSINOPHILS % 2.2 % (0.0-5.0); HEMATOCRIT. 31.6 % (36.0-48.0); HEMOGLOBIN. 10.6 g/dL (12.0-16.0); LYMPHOCYTES % 16.9 % (20.0-50.0); MEAN CORPUSCULAR HEMOGLOBIN 28.3 pg (28.0-32.0); MEAN CORPUSCULAR HGB CONC 33.5 g/dL (31.0-37.0); MEAN CORPUSCULAR VOLUME 84.5 fL (81.0-99.0); MEAN PLATELET VOLUME 8.5 fl (7.4-10.4); MONOCYTES % 6.5 % (2.0-8.0); NEUTROPHILS % 73.9 % (40.0-76.0); PLATELET 194 x1000/uL (130-400); RED BLOOD CELL COUNT 3.74 mill/uL (4.2-5.4); WHITE BLOOD COUNT 7.8 x1000/uL (4.5-11.0)
[2023-06-06 08:24] LABS: CHLORIDE 103 mEq/L (98-107); INDEX HEMOLYSI 1 (1-3); INDEX ICTERIC 1 (1-4); INDEX LIPEMIC 1 (1-3); POTASSIUM 4.4 mEq/L (3.5-5.1); SODIUM 133 mEq/L (136-145)
[2023-06-06 08:32] LABS: ALANINE AMINOTRANSFERASE 21 IU/L (13-61); ALBUMIN 2.9 g/dL (3.4-5.0); ASPARTATE AMINOTRANSFERASE 21 IU/L (15-37); BILIRUBIN TOTAL 0.7 mg/dL (0.1-1.0); CALCIUM 8.6 mg/dL (8.5-10.1); CARBON DIOXIDE 24 mEq/L (21-32); CREATININE 2.3 mg/dL (0.6-1.3); GLUCOSE 123 mg/dL (70-105); PROTEIN TOTAL 6.7 g/dL (6.0-8.3); UREA NITROGEN BLOOD 56 mg/dL (7-21)
[2023-06-06] MEDS ORDERED: APIXABAN 2.5 MG TABLET PO SCH ×2 (09:00)
[2023-06-06] MEDS: CALCITRIOL 0.25MCG CAPSULE PO SCH (09:23)
[2023-06-06] MEDS: BRIMONIDINE 0.2% OPHTH DROPS 10ML BOTHEYE SCH ×2 (09:29→20:41)
[2023-06-06] MEDS: ENOXAPARIN 30MG/0.3ML SYR SUBCUT SCH (13:04)
[2023-06-06] MEDS ORDERED: NALOXONE HCL 0.4MG/ML VIAL IV PRN (14:00)
[2023-06-06] MEDS: CEFTRIAXONE 2 G in DEXTROSE 5% WATER 50 ML IV SCH (15:26)
[2023-06-06] MEDS: HYDROCODONE/ACETAMINOPHEN 5/325MG TABLET PO PRN (15:29)
[2023-06-06 20:00] VITALS: BP 98/86; PULSE 86; TEMP 97
[2023-06-06] MEDS: ATORVASTATIN CALCIUM 20MG TABLET PO SCH (20:41)
[2023-06-07] MEDS: DILTIAZEM HCL 30MG TABLET PO SCH ×5 (00:28→23:03)
[2023-06-07] MEDS: BLOOD SUGAR DIAGNOSTIC STRIP TEST SCH ×4 (05:23→21:12)
[2023-06-07] MEDS: SODIUM CHLORIDE 0.9% INJ 3ML FLUSH IVF SCH ×3 (05:24→22:59)
[2023-06-07] MEDS: HYDROCODONE/ACETAMINOPHEN 5/325MG TABLET PO PRN ×2 (05:42→23:04)
[2023-06-07] MEDS: LEVOTHYROXINE SODIUM 25MCG TABLET PO SCH (05:44)
[2023-06-07 08:00] VITALS: BP 150/60; PULSE 80; RESP 20; TEMP 97.4
[2023-06-07] MEDS: INSULIN LISPRO 100 UNITS/ML SUBCUT SCH ×4 (09:00→21:26)
[2023-06-07] MEDS: FAMOTIDINE 20MG TABLET PO SCH (09:45)
[2023-06-07] MEDS: CALCITRIOL 0.25MCG CAPSULE PO SCH (09:45)
[2023-06-07] MEDS: BRIMONIDINE 0.2% OPHTH DROPS 10ML BOTHEYE SCH ×2 (09:46→21:12)
[2023-06-07] MEDS: ENOXAPARIN 30MG/0.3ML SYR SUBCUT SCH (09:48)
[2023-06-07] MEDS: CEFTRIAXONE 2 G in DEXTROSE 5% WATER 50 ML IV SCH (13:25)
[2023-06-07 20:00] VITALS: BP 148/95; PULSE 77; RESP 20; TEMP 97.5
[2023-06-07] MEDS: ATORVASTATIN CALCIUM 20MG TABLET PO SCH (21:12)
[2023-06-07 22:59] VITALS: BP 149/61; PULSE 82; RESP 20
[2023-06-08] VITALS (9 sets, daily range): BP systolic 141–184; BP diastolic 52–86; PULSE 79–90; RESP 18–20; TEMP 97.7–98.7
[2023-06-08] MEDS: LEVOTHYROXINE SODIUM 25MCG TABLET PO SCH (06:43)
[2023-06-08] MEDS: SODIUM CHLORIDE 0.9% INJ 3ML FLUSH IVF SCH ×3 (06:43→22:28)
[2023-06-08] MEDS: BLOOD SUGAR DIAGNOSTIC STRIP TEST SCH ×4 (06:43→21:00)
[2023-06-08] MEDS: DILTIAZEM HCL 30MG TABLET PO SCH ×3 (06:45→17:41)
[2023-06-08] MEDS: INSULIN LISPRO 100 UNITS/ML SUBCUT SCH ×4 (09:00→20:31)
[2023-06-08] MEDS: BRIMONIDINE 0.2% OPHTH DROPS 10ML BOTHEYE SCH ×2 (09:06→20:24)
[2023-06-08] MEDS: ENOXAPARIN 30MG/0.3ML SYR SUBCUT SCH (09:06)
[2023-06-08] MEDS: CALCITRIOL 0.25MCG CAPSULE PO SCH (09:06)
[2023-06-08 13:10] LABS: POTASSIUM 4.1 mEq/L (3.5-5.1)
[2023-06-08 13:16] LABS: CALCIUM 8.6 mg/dL (8.5-10.1); CREATININE 1.9 mg/dL (0.6-1.3)
[2023-06-08] MEDS: CEFTRIAXONE 2 G in DEXTROSE 5% WATER 50 ML IV SCH (14:01)
[2023-06-08 14:20] LABS: HEPATITIS B SURFACE ANTIGEN NEGATIVE
[2023-06-08 14:47] LABS: HEPATITIS C VIR.AB 0.14 INDEXVAL (0.00-0.80)
[2023-06-08 14:48] LABS: HEPATITIS B CORE AB IGM NEGATIVE
[2023-06-08 14:49] LABS: HEPATITIS A AB IGM NEGATIVE (NEGATIVE)
[2023-06-08] MEDS: HYDROCODONE/ACETAMINOPHEN 5/325MG TABLET PO PRN (15:41)
[2023-06-08] MEDS: ATORVASTATIN CALCIUM 20MG TABLET PO SCH (20:25)
[2023-06-09 00:30] VITALS: BP 159/51; PULSE 89; RESP 18
[2023-06-09] MEDS: DILTIAZEM HCL 30MG TABLET PO SCH ×4 (00:39→17:52)
[2023-06-09] MEDS: HYDROCODONE/ACETAMINOPHEN 5/325MG TABLET PO PRN ×3 (00:39→21:06)
[2023-06-09] MEDS: SODIUM CHLORIDE 0.9% INJ 3ML FLUSH IVF SCH ×3 (06:42→21:25)
[2023-06-09] MEDS: LEVOTHYROXINE SODIUM 25MCG TABLET PO SCH (06:49)
[2023-06-09] MEDS: BLOOD SUGAR DIAGNOSTIC STRIP TEST SCH ×4 (06:50→21:06)
[2023-06-09] MEDS: INSULIN LISPRO 100 UNITS/ML SUBCUT SCH ×4 (06:50→21:19)
[2023-06-09 08:00] VITALS: BP 134/48; PULSE 78; RESP 18; TEMP 98.4
[2023-06-09] MEDS: CALCITRIOL 0.25MCG CAPSULE PO SCH (08:12)
[2023-06-09] MEDS: BRIMONIDINE 0.2% OPHTH DROPS 10ML BOTHEYE SCH ×2 (08:12→21:05)
[2023-06-09] MEDS: FAMOTIDINE 20MG TABLET PO SCH (08:12)
[2023-06-09] MEDS: ENOXAPARIN 30MG/0.3ML SYR SUBCUT SCH (08:13)
[2023-06-09] MEDS: CEFTRIAXONE 2 G in DEXTROSE 5% WATER 50 ML IV SCH (13:47)
[2023-06-09 20:00] VITALS: BP 157/57; PULSE 102; RESP 18; TEMP 99.1
[2023-06-09] MEDS: ATORVASTATIN CALCIUM 20MG TABLET PO SCH (21:07)
[2023-06-09] MEDS: GUAIFENESIN 200MG/10ML SUGAR FREE UDC PO PRN (21:14)
[2023-06-10] MEDS: DILTIAZEM HCL 30MG TABLET PO SCH ×5 (00:49→23:15)
[2023-06-10] MEDS: ACETAMINOPHEN 325MG TABLET PO PRN ×2 (06:22→21:31)
[2023-06-10] MEDS: LEVOTHYROXINE SODIUM 25MCG TABLET PO SCH (06:23)
[2023-06-10] MEDS: SODIUM CHLORIDE 0.9% INJ 3ML FLUSH IVF SCH ×3 (06:23→21:32)
[2023-06-10] MEDS: BLOOD SUGAR DIAGNOSTIC STRIP TEST SCH ×4 (06:30→21:02)
[2023-06-10] MEDS: INSULIN LISPRO 100 UNITS/ML SUBCUT SCH ×4 (06:31→21:01)
[2023-06-10 07:09] LABS: BASOPHILS % 0.9 % (0.0-2.0); HEMATOCRIT. 29.3 % (36.0-48.0); HEMOGLOBIN. 9.7 g/dL (12.0-16.0); LYMPHOCYTES % 22.7 % (20.0-50.0); MEAN CORPUSCULAR HEMOGLOBIN 28.4 pg (28.0-32.0); MEAN CORPUSCULAR HGB CONC 33.3 g/dL (31.0-37.0); MEAN CORPUSCULAR VOLUME 85.2 fL (81.0-99.0); MEAN PLATELET VOLUME 8.5 fl (7.4-10.4); MONOCYTES % 7.8 % (2.0-8.0); NEUTROPHILS % 66.6 % (40.0-76.0); PLATELET 189 x1000/uL (130-400); RED BLOOD CELL COUNT 3.43 mill/uL (4.2-5.4); RED CELL DISTRIBUTION WIDTH 18.6 % (11.6-14.6); WHITE BLOOD COUNT 5.1 x1000/uL (4.5-11.0)
[2023-06-10 08:00] VITALS: BP 126/60; PULSE 83; RESP 18; TEMP 98.6
[2023-06-10] MEDS: BRIMONIDINE 0.2% OPHTH DROPS 10ML BOTHEYE SCH ×2 (09:42→20:51)
[2023-06-10] MEDS: FUROSEMIDE 40MG TABLET PO SCH (09:42)
[2023-06-10] MEDS: CALCITRIOL 0.25MCG CAPSULE PO SCH (09:42)
[2023-06-10] MEDS: ENOXAPARIN 30MG/0.3ML SYR SUBCUT SCH (09:45)
[2023-06-10 13:50] LABS: POTASSIUM 4.5 mEq/L (3.5-5.1)
[2023-06-10 13:59] LABS: CALCIUM 8.9 mg/dL (8.5-10.1); PHOSPHORUS 3.9 mg/dL (2.5-4.9)
[2023-06-10] MEDS: CEFTRIAXONE 2 G in DEXTROSE 5% WATER 50 ML IV SCH (14:41)
[2023-06-10 19:49] VITALS: BP 139/52; PULSE 77; RESP 20; TEMP 97.7
[2023-06-10] MEDS: ATORVASTATIN CALCIUM 20MG TABLET PO SCH (20:51)
[2023-06-11] MEDS: ACETAMINOPHEN 325MG TABLET PO PRN ×3 (01:14→22:00)
[2023-06-11] MEDS: SODIUM CHLORIDE 0.9% INJ 3ML FLUSH IVF SCH ×3 (05:54→22:43)
[2023-06-11] MEDS: LEVOTHYROXINE SODIUM 25MCG TABLET PO SCH (05:55)
[2023-06-11] MEDS: DILTIAZEM HCL 30MG TABLET PO SCH ×4 (05:56→23:06)
[2023-06-11] MEDS: BLOOD SUGAR DIAGNOSTIC STRIP TEST SCH ×4 (05:58→21:40)
[2023-06-11 07:25] LABS: BASOPHILS % 0.8 % (0.0-2.0); HEMATOCRIT. 28.9 % (36.0-48.0); HEMOGLOBIN. 9.6 g/dL (12.0-16.0); LYMPHOCYTES % 24.1 % (20.0-50.0); MEAN CORPUSCULAR HEMOGLOBIN 28.4 pg (28.0-32.0); MEAN CORPUSCULAR HGB CONC 33.1 g/dL (31.0-37.0); MEAN CORPUSCULAR VOLUME 85.8 fL (81.0-99.0); MEAN PLATELET VOLUME 8.6 fl (7.4-10.4); NEUTROPHILS % 65.1 % (40.0-76.0); PLATELET 175 x1000/uL (130-400); RED BLOOD CELL COUNT 3.37 mill/uL (4.2-5.4); RED CELL DISTRIBUTION WIDTH 18.7 % (11.6-14.6); WHITE BLOOD COUNT 4.7 x1000/uL (4.5-11.0)
[2023-06-11 08:00] VITALS: BP 156/66; PULSE 79; RESP 17; TEMP 98.6
[2023-06-11 08:46] LABS: POTASSIUM 4.2 mEq/L (3.5-5.1)
[2023-06-11] MEDS: ENOXAPARIN 30MG/0.3ML SYR SUBCUT SCH (08:48)
[2023-06-11] MEDS: FUROSEMIDE 40MG TABLET PO SCH (08:48)
[2023-06-11] MEDS: FAMOTIDINE 20MG TABLET PO SCH (08:48)
[2023-06-11] MEDS: CALCITRIOL 0.25MCG CAPSULE PO SCH (08:48)
[2023-06-11 08:54] LABS: CALCIUM 9.1 mg/dL (8.5-10.1); CREATININE 1.9 mg/dL (0.6-1.3)
[2023-06-11] MEDS: INSULIN LISPRO 100 UNITS/ML SUBCUT SCH ×4 (09:00→21:00)
[2023-06-11] MEDS: BRIMONIDINE 0.2% OPHTH DROPS 10ML BOTHEYE SCH ×2 (09:00→21:40)
[2023-06-11] MEDS: CEFTRIAXONE 2 G in DEXTROSE 5% WATER 50 ML IV SCH (14:00)
[2023-06-11 20:07] VITALS: BP 147/55; PULSE 77; RESP 18; TEMP 97.8
[2023-06-11] MEDS: ATORVASTATIN CALCIUM 20MG TABLET PO SCH (21:40)
[2023-06-12] MEDS: SODIUM CHLORIDE 0.9% INJ 3ML FLUSH IVF SCH ×3 (05:41→22:31)
[2023-06-12] MEDS: BLOOD SUGAR DIAGNOSTIC STRIP TEST SCH ×4 (06:37→21:00)
[2023-06-12] MEDS: LEVOTHYROXINE SODIUM 25MCG TABLET PO SCH (06:39)
[2023-06-12] MEDS: INSULIN LISPRO 100 UNITS/ML SUBCUT SCH ×4 (06:40→21:20)
[2023-06-12] MEDS: DILTIAZEM HCL 30MG TABLET PO SCH ×3 (06:40→18:06)
[2023-06-12 07:38] LABS: BASOPHILS % 1.4 % (0.0-2.0); HEMATOCRIT. 26.9 % (36.0-48.0); HEMOGLOBIN. 9.1 g/dL (12.0-16.0); LYMPHOCYTES % 21.7 % (20.0-50.0); MEAN CORPUSCULAR HEMOGLOBIN 28.8 pg (28.0-32.0); MEAN CORPUSCULAR VOLUME 84.7 fL (81.0-99.0); MEAN PLATELET VOLUME 8.8 fl (7.4-10.4); MONOCYTES % 7.1 % (2.0-8.0); NEUTROPHILS % 67.8 % (40.0-76.0); PLATELET 165 x1000/uL (130-400); RED BLOOD CELL COUNT 3.17 mill/uL (4.2-5.4); RED CELL DISTRIBUTION WIDTH 18.7 % (11.6-14.6); WHITE BLOOD COUNT 4.2 x1000/uL (4.5-11.0)
[2023-06-12 08:00] VITALS: BP 158/55; PULSE 82; RESP 18; TEMP 98
[2023-06-12] MEDS: BRIMONIDINE 0.2% OPHTH DROPS 10ML BOTHEYE SCH ×2 (08:00→21:00)
[2023-06-12] MEDS: CALCITRIOL 0.25MCG CAPSULE PO SCH (08:01)
[2023-06-12] MEDS: ENOXAPARIN 30MG/0.3ML SYR SUBCUT SCH (08:01)
[2023-06-12] MEDS: FUROSEMIDE 40MG TABLET PO SCH (08:01)
[2023-06-12 10:26] LABS: POTASSIUM 4.1 mEq/L (3.5-5.1)
[2023-06-12 10:52] LABS: CALCIUM 9.1 mg/dL (8.5-10.1); CREATININE 2.6 mg/dL (0.6-1.3)
[2023-06-12] MEDS: ACETAMINOPHEN 325MG TABLET PO PRN (12:04)
[2023-06-12] MEDS: CEFTRIAXONE 2 G in DEXTROSE 5% WATER 50 ML IV SCH (14:25)
[2023-06-12] MEDS ORDERED: NALOXONE HCL 0.4MG/ML VIAL IV PRN (14:30)
[2023-06-12] MEDS: PANTOT AC/MIN OIL/PET HY-PHL OINT (AQUAPHOR) TOP SCH (17:00)
[2023-06-12 20:00] VITALS: BP 151/61; PULSE 78; RESP 20; TEMP 97.9
[2023-06-12] MEDS: ATORVASTATIN CALCIUM 20MG TABLET PO SCH (21:00)
[2023-06-12] MEDS: HYDROCODONE/ACETAMINOPHEN 7.5/325MG TABLET PO PRN (22:00)
[2023-06-13] VITALS (10 sets, daily range): BP systolic 101–157; BP diastolic 61–76; PULSE 75–96; RESP 16–18; TEMP 97.7–98.1
[2023-06-13] MEDS: DILTIAZEM HCL 30MG TABLET PO SCH ×5 (06:00→23:17)
[2023-06-13] MEDS: SODIUM CHLORIDE 0.9% INJ 3ML FLUSH IVF SCH ×3 (06:26→21:14)
[2023-06-13] MEDS: LEVOTHYROXINE SODIUM 25MCG TABLET PO SCH (06:33)
[2023-06-13] MEDS: BLOOD SUGAR DIAGNOSTIC STRIP TEST SCH ×4 (06:33→21:01)
[2023-06-13] MEDS: INSULIN LISPRO 100 UNITS/ML SUBCUT SCH ×4 (09:00→21:14)
[2023-06-13] MEDS: FAMOTIDINE 20MG TABLET PO SCH (09:30)
[2023-06-13] MEDS: ENOXAPARIN 30MG/0.3ML SYR SUBCUT SCH (09:30)
[2023-06-13] MEDS: FUROSEMIDE 40MG TABLET PO SCH (09:30)
[2023-06-13] MEDS: CALCITRIOL 0.25MCG CAPSULE PO SCH (09:30)
[2023-06-13] MEDS: PANTOT AC/MIN OIL/PET HY-PHL OINT (AQUAPHOR) TOP SCH ×2 (09:31→16:26)
[2023-06-13] MEDS: BRIMONIDINE 0.2% OPHTH DROPS 10ML BOTHEYE SCH ×2 (09:32→20:58)
[2023-06-13] MEDS: CEFTRIAXONE 2 G in DEXTROSE 5% WATER 50 ML IV SCH (14:11)
[2023-06-13] MEDS: ATORVASTATIN CALCIUM 20MG TABLET PO SCH (20:58)
[2023-06-14] MEDS: LEVOTHYROXINE SODIUM 25MCG TABLET PO SCH (06:08)
[2023-06-14] MEDS: SODIUM CHLORIDE 0.9% INJ 3ML FLUSH IVF SCH ×3 (06:08→21:33)
[2023-06-14] MEDS: DILTIAZEM HCL 30MG TABLET PO SCH ×4 (06:08→23:24)
[2023-06-14] MEDS: BLOOD SUGAR DIAGNOSTIC STRIP TEST SCH ×4 (06:13→20:39)
[2023-06-14] MEDS: INSULIN LISPRO 100 UNITS/ML SUBCUT SCH ×4 (06:39→20:45)
[2023-06-14 07:32] LABS: BASOPHILS % 1.9 % (0.0-2.0); EOSINOPHILS % 2.1 % (0.0-5.0); HEMATOCRIT. 30.2 % (36.0-48.0); HEMOGLOBIN. 10.1 g/dL (12.0-16.0); LYMPHOCYTES % 25.1 % (20.0-50.0); MEAN CORPUSCULAR HEMOGLOBIN 28.6 pg (28.0-32.0); MEAN CORPUSCULAR HGB CONC 33.6 g/dL (31.0-37.0); MEAN CORPUSCULAR VOLUME 85.2 fL (81.0-99.0); MEAN PLATELET VOLUME 8.8 fl (7.4-10.4); MONOCYTES % 7.7 % (2.0-8.0); NEUTROPHILS % 63.2 % (40.0-76.0); PLATELET 144 x1000/uL (130-400); RED BLOOD CELL COUNT 3.54 mill/uL (4.2-5.4); WHITE BLOOD COUNT 4.8 x1000/uL (4.5-11.0)
[2023-06-14 07:44] LABS: POTASSIUM 4.1 mEq/L (3.5-5.1)
[2023-06-14 07:53] LABS: CALCIUM 8.7 mg/dL (8.5-10.1); CREATININE 1.6 mg/dL (0.6-1.3)
[2023-06-14 08:00] VITALS: BP 155/65; PULSE 83; RESP 17; RESP 18; TEMP 97.6
[2023-06-14] MEDS: ENOXAPARIN 30MG/0.3ML SYR SUBCUT SCH (09:00)
[2023-06-14] MEDS: CALCITRIOL 0.25MCG CAPSULE PO SCH (09:00)
[2023-06-14] MEDS: FUROSEMIDE 40MG TABLET PO SCH (09:00)
[2023-06-14] MEDS: PANTOT AC/MIN OIL/PET HY-PHL OINT (AQUAPHOR) TOP SCH ×2 (09:00→16:23)
[2023-06-14] MEDS: BRIMONIDINE 0.2% OPHTH DROPS 10ML BOTHEYE SCH ×2 (09:00→20:36)
[2023-06-14 19:49] VITALS: BP 145/52; PULSE 75; RESP 17; TEMP 96.9
[2023-06-14 20:00] VITALS: TEMP 98.1
[2023-06-14] MEDS: ATORVASTATIN CALCIUM 20MG TABLET PO SCH (20:35)
[2023-06-15] MEDS: DILTIAZEM HCL 30MG TABLET PO SCH ×3 (06:21→18:14)
[2023-06-15] MEDS: LEVOTHYROXINE SODIUM 25MCG TABLET PO SCH (06:22)
[2023-06-15] MEDS: SODIUM CHLORIDE 0.9% INJ 3ML FLUSH IVF SCH ×3 (06:22→22:55)
[2023-06-15] MEDS: BLOOD SUGAR DIAGNOSTIC STRIP TEST SCH ×4 (06:25→21:25)
[2023-06-15] MEDS: INSULIN LISPRO 100 UNITS/ML SUBCUT SCH ×4 (06:26→21:00)
[2023-06-15 07:42] LABS: EOSINOPHILS % 1.7 % (0.0-5.0); HEMATOCRIT. 28.4 % (36.0-48.0); HEMOGLOBIN. 9.4 g/dL (12.0-16.0); LYMPHOCYTES % 26.2 % (20.0-50.0); MEAN CORPUSCULAR HEMOGLOBIN 28.2 pg (28.0-32.0); MEAN CORPUSCULAR HGB CONC 33.2 g/dL (31.0-37.0); MEAN PLATELET VOLUME 8.9 fl (7.4-10.4); MONOCYTES % 8.7 % (2.0-8.0); NEUTROPHILS % 61.4 % (40.0-76.0); PLATELET 134 x1000/uL (130-400); RED BLOOD CELL COUNT 3.35 mill/uL (4.2-5.4); RED CELL DISTRIBUTION WIDTH 18.6 % (11.6-14.6); WHITE BLOOD COUNT 4.2 x1000/uL (4.5-11.0)
[2023-06-15 08:00] VITALS: BP 138/56; PULSE 86; RESP 18; TEMP 97.2
[2023-06-15 08:00] LABS: POTASSIUM 3.9 mEq/L (3.5-5.1)
[2023-06-15 08:08] LABS: CALCIUM 8.6 mg/dL (8.5-10.1); CREATININE 1.9 mg/dL (0.6-1.3)
[2023-06-15] MEDS: CALCITRIOL 0.25MCG CAPSULE PO SCH (08:25)
[2023-06-15] MEDS: FUROSEMIDE 40MG TABLET PO SCH (08:26)
[2023-06-15] MEDS: FAMOTIDINE 20MG TABLET PO SCH (08:26)
[2023-06-15] MEDS: ENOXAPARIN 30MG/0.3ML SYR SUBCUT SCH (08:27)
[2023-06-15] MEDS: HYDROCODONE/ACETAMINOPHEN 7.5/325MG TABLET PO PRN (08:30)
[2023-06-15] MEDS: PANTOT AC/MIN OIL/PET HY-PHL OINT (AQUAPHOR) TOP SCH ×2 (09:00→17:00)
[2023-06-15] MEDS: BRIMONIDINE 0.2% OPHTH DROPS 10ML BOTHEYE SCH ×2 (09:00→21:26)
[2023-06-15 20:00] VITALS: BP 140/47; PULSE 60; RESP 20; TEMP 98.2
[2023-06-15] MEDS: ATORVASTATIN CALCIUM 20MG TABLET PO SCH (21:26)
[2023-06-16] MEDS: DILTIAZEM HCL 30MG TABLET PO SCH ×4 (00:01→18:20)
[2023-06-16 02:13] VITALS: BP 95/44; PULSE 76; RESP 20; TEMP 97.9
[2023-06-16 06:05] LABS: EOSINOPHILS % 2.3 % (0.0-5.0); HEMATOCRIT. 27.1 % (36.0-48.0); HEMOGLOBIN. 9.2 g/dL (12.0-16.0); LYMPHOCYTES % 25.1 % (20.0-50.0); MEAN CORPUSCULAR HEMOGLOBIN 28.9 pg (28.0-32.0); MEAN CORPUSCULAR HGB CONC 33.9 g/dL (31.0-37.0); MEAN CORPUSCULAR VOLUME 85.1 fL (81.0-99.0); MEAN PLATELET VOLUME 9.4 fl (7.4-10.4); MONOCYTES % 10.4 % (2.0-8.0); NEUTROPHILS % 60.2 % (40.0-76.0); PLATELET 123 x1000/uL (130-400); RED BLOOD CELL COUNT 3.19 mill/uL (4.2-5.4); RED CELL DISTRIBUTION WIDTH 18.9 % (11.6-14.6); WHITE BLOOD COUNT 3.5 x1000/uL (4.5-11.0)
[2023-06-16] MEDS: INSULIN LISPRO 100 UNITS/ML SUBCUT SCH ×4 (06:23→21:00)
[2023-06-16] MEDS: LEVOTHYROXINE SODIUM 25MCG TABLET PO SCH (06:23)
[2023-06-16] MEDS: BLOOD SUGAR DIAGNOSTIC STRIP TEST SCH ×4 (06:23→21:00)
[2023-06-16] MEDS: SODIUM CHLORIDE 0.9% INJ 3ML FLUSH IVF SCH ×3 (06:26→22:00)
[2023-06-16 07:36] LABS: CALCIUM 8.9 mg/dL (8.5-10.1); CREATININE 1.9 mg/dL (0.6-1.3); PHOSPHORUS 4.2 mg/dL (2.5-4.9); POTASSIUM 3.8 mEq/L (3.5-5.1)
[2023-06-16 08:00] VITALS: BP 102/51; PULSE 74; RESP 18; TEMP 96.9
[2023-06-16] MEDS: CALCITRIOL 0.25MCG CAPSULE PO SCH (08:21)
[2023-06-16] MEDS: ENOXAPARIN 30MG/0.3ML SYR SUBCUT SCH (08:22)
[2023-06-16] MEDS: FUROSEMIDE 40MG TABLET PO SCH (08:22)
[2023-06-16] MEDS: BRIMONIDINE 0.2% OPHTH DROPS 10ML BOTHEYE SCH ×2 (08:23→21:00)
[2023-06-16] MEDS: HYDROCODONE/ACETAMINOPHEN 7.5/325MG TABLET PO PRN ×2 (08:23→22:19)
[2023-06-16] MEDS: PANTOT AC/MIN OIL/PET HY-PHL OINT (AQUAPHOR) TOP SCH ×2 (08:23→17:00)
[2023-06-16] MEDS: MAGNESIUM GLUCONATE 500MG TABLET PO SCH (18:19)
[2023-06-16 20:00] VITALS: BP 95/44; PULSE 76; RESP 20; TEMP 97.9
[2023-06-16] MEDS: ATORVASTATIN CALCIUM 20MG TABLET PO SCH (21:00)
[2023-06-17] MEDS: DILTIAZEM HCL 30MG TABLET PO SCH ×4 (06:00→17:06)
[2023-06-17] MEDS: SODIUM CHLORIDE 0.9% INJ 3ML FLUSH IVF SCH ×3 (06:00→21:24)
[2023-06-17] MEDS: BLOOD SUGAR DIAGNOSTIC STRIP TEST SCH ×4 (06:30→21:00)
[2023-06-17] MEDS: LEVOTHYROXINE SODIUM 25MCG TABLET PO SCH (07:03)
[2023-06-17 07:58] LABS: BASOPHILS % 1.5 % (0.0-2.0); EOSINOPHILS % 2.6 % (0.0-5.0); HEMATOCRIT. 28.2 % (36.0-48.0); HEMOGLOBIN. 9.4 g/dL (12.0-16.0); LYMPHOCYTES % 29.1 % (20.0-50.0); MEAN CORPUSCULAR HEMOGLOBIN 28.4 pg (28.0-32.0); MEAN CORPUSCULAR HGB CONC 33.4 g/dL (31.0-37.0); MEAN PLATELET VOLUME 9.4 fl (7.4-10.4); MONOCYTES % 11.9 % (2.0-8.0); NEUTROPHILS % 54.9 % (40.0-76.0); PLATELET 118 x1000/uL (130-400); RED BLOOD CELL COUNT 3.32 mill/uL (4.2-5.4); RED CELL DISTRIBUTION WIDTH 18.9 % (11.6-14.6); WHITE BLOOD COUNT 3.2 x1000/uL (4.5-11.0)
[2023-06-17 08:00] VITALS: BP 149/59; PULSE 80; RESP 18; TEMP 97.9
[2023-06-17 08:14] LABS: CALCIUM 9.1 mg/dL (8.5-10.1); POTASSIUM 4.3 mEq/L (3.5-5.1)
[2023-06-17 08:18] LABS: CREATININE 1.9 mg/dL (0.6-1.3)
[2023-06-17] MEDS: INSULIN LISPRO 100 UNITS/ML SUBCUT SCH ×4 (09:00→21:00)
[2023-06-17] MEDS: PANTOT AC/MIN OIL/PET HY-PHL OINT (AQUAPHOR) TOP SCH ×2 (09:00→17:00)
[2023-06-17] MEDS: BRIMONIDINE 0.2% OPHTH DROPS 10ML BOTHEYE SCH ×2 (09:00→21:00)
[2023-06-17] MEDS: FAMOTIDINE 20MG TABLET PO SCH (09:26)
[2023-06-17] MEDS: MAGNESIUM GLUCONATE 500MG TABLET PO SCH (09:26)
[2023-06-17] MEDS: FUROSEMIDE 40MG TABLET PO SCH (09:27)
[2023-06-17] MEDS: CALCITRIOL 0.25MCG CAPSULE PO SCH (09:27)
[2023-06-17] MEDS: ENOXAPARIN 30MG/0.3ML SYR SUBCUT SCH (09:27)
[2023-06-17] MEDS: HYDROCODONE/ACETAMINOPHEN 7.5/325MG TABLET PO PRN ×2 (09:31→15:19)
[2023-06-17] MEDS ORDERED: NALOXONE HCL 0.4MG/ML VIAL IV PRN (15:00)
[2023-06-17 20:01] VITALS: BP 128/59; PULSE 74; RESP 20; TEMP 97.2
[2023-06-17] MEDS: ATORVASTATIN CALCIUM 20MG TABLET PO SCH (20:40)
[2023-06-18] MEDS: DILTIAZEM HCL 30MG TABLET PO SCH ×5 (06:00→23:39)
[2023-06-18] MEDS: SODIUM CHLORIDE 0.9% INJ 3ML FLUSH IVF SCH ×3 (06:00→21:48)
[2023-06-18] MEDS: BLOOD SUGAR DIAGNOSTIC STRIP TEST SCH ×4 (06:23→21:42)
[2023-06-18] MEDS: INSULIN LISPRO 100 UNITS/ML SUBCUT SCH ×4 (06:23→21:51)
[2023-06-18] MEDS: LEVOTHYROXINE SODIUM 25MCG TABLET PO SCH (06:47)
[2023-06-18 07:38] LABS: HEPATITIS B SURFACE AB < 3.1 mIU/mL
[2023-06-18 07:48] LABS: HEPATITIS B SURFACE ANTIGEN NEGATIVE
[2023-06-18 08:00] VITALS: BP 152/66; PULSE 94; RESP 17; TEMP 97.8
[2023-06-18 08:16] LABS: HEPATITIS C VIR.AB 0.16 INDEXVAL (0.00-0.80)
[2023-06-18 08:17] LABS: HEPATITIS B CORE AB IGM NEGATIVE
[2023-06-18 08:18] LABS: HEPATITIS A AB IGM NEGATIVE (NEGATIVE)
[2023-06-18] MEDS: BRIMONIDINE 0.2% OPHTH DROPS 10ML BOTHEYE SCH ×2 (09:00→20:36)
[2023-06-18] MEDS: PANTOT AC/MIN OIL/PET HY-PHL OINT (AQUAPHOR) TOP SCH ×2 (09:00→17:00)
[2023-06-18] MEDS: ENOXAPARIN 30MG/0.3ML SYR SUBCUT SCH (09:01)
[2023-06-18] MEDS: MAGNESIUM GLUCONATE 500MG TABLET PO SCH (09:01)
[2023-06-18] MEDS: CALCITRIOL 0.25MCG CAPSULE PO SCH (09:01)
[2023-06-18] MEDS: FUROSEMIDE 40MG TABLET PO SCH (09:01)
[2023-06-18] MEDS: HYDROCODONE/ACETAMINOPHEN 7.5/325MG TABLET PO PRN ×2 (09:14→20:39)
[2023-06-18 20:00] VITALS: BP 118/42; PULSE 77; RESP 20; TEMP 97.7
[2023-06-18] MEDS: ATORVASTATIN CALCIUM 20MG TABLET PO SCH (21:45)
[2023-06-19] MEDS: LEVOTHYROXINE SODIUM 25MCG TABLET PO SCH (05:51)
[2023-06-19] MEDS: SODIUM CHLORIDE 0.9% INJ 3ML FLUSH IVF SCH ×3 (05:53→21:16)
[2023-06-19] MEDS: BLOOD SUGAR DIAGNOSTIC STRIP TEST SCH ×4 (05:53→21:00)
[2023-06-19] MEDS: DILTIAZEM HCL 30MG TABLET PO SCH ×3 (05:53→17:14)
[2023-06-19 06:53] LABS: EOSINOPHILS % 3.5 % (0.0-5.0); HEMATOCRIT. 27.3 % (36.0-48.0); HEMOGLOBIN. 9.2 g/dL (12.0-16.0); LYMPHOCYTES % 27.3 % (20.0-50.0); MEAN CORPUSCULAR HGB CONC 33.6 g/dL (31.0-37.0); MEAN CORPUSCULAR VOLUME 86.3 fL (81.0-99.0); MEAN PLATELET VOLUME 9.3 fl (7.4-10.4); MONOCYTES % 11.8 % (2.0-8.0); NEUTROPHILS % 56.4 % (40.0-76.0); PLATELET 107 x1000/uL (130-400); RED BLOOD CELL COUNT 3.17 mill/uL (4.2-5.4); RED CELL DISTRIBUTION WIDTH 19.1 % (11.6-14.6); WHITE BLOOD COUNT 3.1 x1000/uL (4.5-11.0)
[2023-06-19 06:55] LABS: CALCIUM 8.6 mg/dL (8.5-10.1); POTASSIUM 3.9 mEq/L (3.5-5.1)
[2023-06-19 06:58] LABS: CREATININE 2.1 mg/dL (0.6-1.3); PHOSPHORUS 3.8 mg/dL (2.5-4.9)
[2023-06-19 08:00] VITALS: BP 138/65; PULSE 78; RESP 18; TEMP 97.8
[2023-06-19] MEDS: ENOXAPARIN 30MG/0.3ML SYR SUBCUT SCH (08:39)
[2023-06-19] MEDS: FAMOTIDINE 20MG TABLET PO SCH (08:40)
[2023-06-19] MEDS: CALCITRIOL 0.25MCG CAPSULE PO SCH (08:40)
[2023-06-19] MEDS: HYDROCODONE/ACETAMINOPHEN 7.5/325MG TABLET PO PRN (08:40)
[2023-06-19] MEDS: MAGNESIUM GLUCONATE 500MG TABLET PO SCH (08:40)
[2023-06-19] MEDS: FUROSEMIDE 40MG TABLET PO SCH (08:40)
[2023-06-19] MEDS: INSULIN LISPRO 100 UNITS/ML SUBCUT SCH ×4 (08:41→21:00)
[2023-06-19] MEDS: PANTOT AC/MIN OIL/PET HY-PHL OINT (AQUAPHOR) TOP SCH ×2 (08:44→17:14)
[2023-06-19] MEDS: BRIMONIDINE 0.2% OPHTH DROPS 5ML BOTHEYE SCH ×2 (09:00→20:52)
[2023-06-19] MEDS ORDERED: MAGNESIUM 2 G PREMIX 50 ML IV NR (10:30)
[2023-06-19 19:35] VITALS: BP 109/37; PULSE 75; RESP 17; TEMP 97.6
[2023-06-19] MEDS: ATORVASTATIN CALCIUM 20MG TABLET PO SCH (20:52)
[2023-06-20] MEDS: BLOOD SUGAR DIAGNOSTIC STRIP TEST SCH ×2 (05:49→11:54)
[2023-06-20] MEDS: INSULIN LISPRO 100 UNITS/ML SUBCUT SCH ×2 (05:49→12:06)
[2023-06-20] MEDS: SODIUM CHLORIDE 0.9% INJ 3ML FLUSH IVF SCH (06:00)
[2023-06-20] MEDS: DILTIAZEM HCL 30MG TABLET PO SCH ×3 (06:07→12:05)
[2023-06-20] MEDS: LEVOTHYROXINE SODIUM 25MCG TABLET PO SCH (06:07)
[2023-06-20 08:00] VITALS: BP 160/65; PULSE 82; RESP 20; TEMP 97.9
[2023-06-20] MEDS: ENOXAPARIN 30MG/0.3ML SYR SUBCUT SCH (08:38)
[2023-06-20] MEDS: FUROSEMIDE 40MG TABLET PO SCH (08:38)
[2023-06-20] MEDS: MAGNESIUM GLUCONATE 500MG TABLET PO SCH (08:38)
[2023-06-20] MEDS: CALCITRIOL 0.25MCG CAPSULE PO SCH (08:38)
[2023-06-20] MEDS: BRIMONIDINE 0.2% OPHTH DROPS 5ML BOTHEYE SCH (08:40)
[2023-06-20] MEDS: PANTOT AC/MIN OIL/PET HY-PHL OINT (AQUAPHOR) TOP SCH (08:42)
[2023-06-20 12:38] VITALS: BP 135/78; PULSE 81; TEMP 97.9; O2SAT 99
== END 2023-06-20 14:15 | DRG 535 ==
PROVIDERS: ADMIT Psychiatry & Neurology Neurology; ATTEND Internal Medicine
PROC: 5A1D70Z Performance of Urinary Filtration, Intermittent, Less than 6 Hours Per Day (ICD-10-PCS; principal; 2023-06-05)
PROC: 5A1D70Z Performance of Urinary Filtration, Intermittent, Less than 6 Hours Per Day (ICD-10-PCS; 2023-06-08)
PROC: 5A1D70Z Performance of Urinary Filtration, Intermittent, Less than 6 Hours Per Day (ICD-10-PCS; 2023-06-13)
DX: S72.115A Nondisplaced fracture of greater trochanter of left femur, initial encounter for closed fracture (principal); A41.51 Sepsis due to Escherichia coli [E. coli]; N18.6 End stage renal disease; I48.20 Chronic atrial fibrillation, unspecified; I13.2 Hypertensive heart and chronic kidney disease with heart failure and with stage 5 chronic kidney disease, or end stage renal disease; I42.8 Other cardiomyopathies; I50.32 Chronic diastolic (congestive) heart failure; I48.19 Other persistent atrial fibrillation; Z66 Do not resuscitate; D69.6 Thrombocytopenia, unspecified; E11.22 Type 2 diabetes mellitus with diabetic chronic kidney disease; D64.9 Anemia, unspecified; E03.9 Hypothyroidism, unspecified; E11.40 Type 2 diabetes mellitus with diabetic neuropathy, unspecified; E78.5 Hyperlipidemia, unspecified; I08.1 Rheumatic disorders of both mitral and tricuspid valves; I27.21 Secondary pulmonary arterial hypertension; I49.5 Sick sinus syndrome; M06.9 Rheumatoid arthritis, unspecified; N32.81 Overactive bladder; F39 Unspecified mood [affective] disorder; F41.9 Anxiety disorder, unspecified; G89.29 Other chronic pain; M54.50 Low back pain, unspecified; I25.10 Atherosclerotic heart disease of native coronary artery without angina pectoris; Z20.822 Contact with and (suspected) exposure to COVID-19; R06.03 Acute respiratory distress; W18.39XA Other fall on same level, initial encounter; Y93.89 Activity, other specified; Y92.89 Other specified places as the place of occurrence of the external cause; Y99.8 Other external cause status; Z79.01 Long term (current) use of anticoagulants; Z99.2 Dependence on renal dialysis; Z79.4 Long term (current) use of insulin; Z95.1 Presence of aortocoronary bypass graft; Z95.0 Presence of cardiac pacemaker; Z79.84 Long term (current) use of oral hypoglycemic drugs; Z79.899 Other long term (current) drug therapy
CPT/HCPCS: 36415; 71045; 80048; 80053; 82570; 82962; 83735; 83935; 84100; 84300; 85025; 86705; 86706; 86709; 86803; 87340; 87426; 90935; 93970; 97110; 97116; 97162; 97166; 97530; 97535; 97542; A6261; J0696; J1650; J1815; J3475; J7060